=== PATIENT | female | born 1965 | race Caucasian/White ===

== ENCOUNTER 2016-12-07 13:17 | Observation (INO) ==
--- NOTE | 2016-12-07 14:00 | Emergency Department Note ---
Disposition Clinical Impression: Chest pain Disposition: Admitted As Inpatient Condition: Good Time of Disposition: 16:42 Chest Pain HPI - General Chief Complaint: ED Chest Pain Stated Complaint: chest pain, ROLO Time Seen by Provider: 12/07/16 13:55 Source: patient, family Mode of arrival: ambulatory Limitations: no limitations Vital Signs Reviewed: Yes Nursing Notes Reviewed: Yes - History of Present Illness HPI Narrative: 51-year-old female with intermittent left-sided chest pain with associated shortness of breath that is worse with exertion over the last 1-2 days. She comes in today as her symptoms occurred at rest and did not remit until she took a nitroglycerin that was prescribed by her primary care physician yesterday. She states that she had a left heart catheter 10 or 15 years ago and does not have any stents. She has a history of hypertension. She denies history of PE or DVT. She denies recent travel, surgery, or immobilization. She notes that she has worsening peripheral edema over the last few days. Her primary care physician recommended that she follow up with cardiology for her symptoms. She does not have an appointment time. Severity scale (1-10): 6 - Related Data Allergies Allergy/AdvReac Type Severity Reaction Status Date / Time Bee Pollen Allergy Swelling Verified 12/07/16 13:25 of Lip/Tongue/Throat tree nut Allergy Swelling Verified 12/07/16 13:25 of Lip/Tongue/Throat All systems ED: reviewed and negative except as stated. Chest Pain PMH - Past Medical History Medical history: Reports: coronary artery disease, hypertension Psychiatric history: Reports: no psych history - Social History Smoking Status: Former smoker Alcohol use: Reports: none Drug use: Reports: none Physical Exam - Head Head exam: atraumatic, normocephalic, normal inspection - Eye Eye exam: Present: normal appearance, PERRL, EOMI - ENT ENT exam: normal exam, normal oropharynx, mucous membranes moist - Neck Neck exam: Present: normal inspection, full ROM, trachea midline - Chest Chest inspection: Present: normal inspection, symmetric chest wall rise - Respiratory Respiratory exam: Clear to auscultation bilaterally without wheezes rales or rhonchi Cardiovascular Cardiovascular exam: Present: regular rate, normal rhythm, normal heart sounds - Abdominal Exam Abdominal exam: Present: soft, Non-Tender. Absent: tenderness, distention, guarding, rebound, rigidity - Extremities Exam Bilateral pedal edema. No calf tenderness. - Back Exam Back exam: Present: normal inspection, full ROM. Absent: tenderness, CVA tenderness (R), CVA tenderness (L) - Neurological Exam Neurological exam: Present: alert, oriented X3, CN II-XII intact - Psychiatric Psychiatric exam: Present: normal affect, normal mood - Skin Skin exam: Present: warm, dry, intact, normal color - General Limitations: no limitations General appearance: alert, in no apparent distress Course - Reevaluation(s) Reevaluation #1: Trop neg. Pt doesn't feel comfortable going home as she lives 1 hour away and her symptoms have been worsening. Accepted by Dr. Beach for CP obs. Time: 16:42 Vital Signs Temperature 98.5 F 12/07/16 13:25 Pulse Rate 104 12/07/16 13:25 Respiratory Rate 18 12/07/16 13:25 Blood Pressure 123/80 12/07/16 13:25 O2 Sat by Pulse Oximetry 100 12/07/16 13:25 Temperature 97.9 F 12/07/16 18:48 Pulse Rate 96 12/07/16 18:48 Respiratory Rate 16 12/07/16 18:48 Blood Pressure 116/68 12/07/16 18:48 O2 Sat by Pulse Oximetry 96 12/07/16 18:48 Oxygen Delivery Oxygen Delivery Room Air Chest Pain - Lab Data Result diagrams: 12/07/16 15:37 12/07/16 15:37 Lab Results 12/07/16 12/07/16 12/07/16 Range/Units 15:37 15:37 15:37 WBC 6.4 (4.3-11.1) K/mcL RBC 3.70 L (3.82-4.97) M/mcL Hgb 12.3 (11.5-15.4) g/dL Hct 36.4 (35.3-44.9) % MCV 98.4 (83.0-100.0) fL MCH 33.2 (28.0-33.3) pg MCHC 33.8 (31.6-35.5) g/dL RDW 14.2 (11.5-14.5) % Plt Count 471 H (140-400) K/mcL MPV 9.4 (9.4-12.4) fL PT 11.4 (9.4-12.1) Seconds INR 1.1 APTT 35.5 (26.0-36.0) Seconds Sodium 138 (136-145) mEq/L Potassium 4.3 (3.5-4.5) mEq/L Chloride 107 (98-109) mEq/L Carbon Dioxide 22 (19-29) mEq/L BUN 12 (7-20) mg/dL Creatinine 0.72 (0.57-1.11) mg/dL Est GFR ( Amer) > 60 (> 60) Est GFR (Non-Af Amer) > 60 (> 60) BUN/Creatinine Ratio 17 (6-26) Glucose 81 (70-99) mg/dL Calculated Osmolality 285 (280-300) Calcium 8.0 L (8.6-10.8) mg/dL Troponin I (0-0.03) ng/mL 12/07/16 Range/Units 15:37 WBC (4.3-11.1) K/mcL RBC (3.82-4.97) M/mcL Hgb (11.5-15.4) g/dL Hct (35.3-44.9) % MCV (83.0-100.0) fL MCH (28.0-33.3) pg MCHC (31.6-35.5) g/dL RDW (11.5-14.5) % Plt Count (140-400) K/mcL MPV (9.4-12.4) fL PT (9.4-12.1) Seconds INR APTT (26.0-36.0) Seconds Sodium (136-145) mEq/L Potassium (3.5-4.5) mEq/L Chloride (98-109) mEq/L Carbon Dioxide (19-29) mEq/L BUN (7-20) mg/dL Creatinine (0.57-1.11) mg/dL Est GFR ( Amer) (> 60) Est GFR (Non-Af Amer) (> 60) BUN/Creatinine Ratio (6-26) Glucose (70-99) mg/dL Calculated Osmolality (280-300) Calcium (8.6-10.8) mg/dL Troponin I 0.00 (0-0.03) ng/mL - EKG Data EKG attestation: Yes I reviewed and interpreted this EKG. EKG results narrative: Sinus tachycardia at 106 with normal axis and intervals. No ST elevation or depression, but there are anterior Q waves. No old EKG available for comparison. Attestation Statement - Attestation Attestation: I examined this patient and my medical decision-making was reviewed with the REHABILITATION PSYCHOLOGIST/PA/Advanced Practice Nurse/Resident Physician. I agree with the documented findings, disposition and treatment plan as described except to the extent set forth below. 51-year-old female presents he has recurrent chest pain. She has had recurring substernal chest discomfort past 2 weeks. This is provoked by exertion with occasional radiation to her left arm. Occasionally has dyspnea and nausea with these as well. Denies any diaphoresis. He was seen yesterday by her PCP and started on nitroglycerin. She did take a Motrin earlier today with reduction of the pain. However, the pain seems to be more frequent and recurs with minimal degree of exertion. No fevers, chills or rigors. Well-appearing, pleasant female in no apparent distress. Flat affect. Oropharynx clear. Neck supple. Chest clear to auscultation bilateral. Chest wall is nontender. Cardiac exam regular without rubs or gallops. Abdomen soft nontender. Extremities warm and dry with bilateral 1+ pitting edema. No calf tenderness. EKG negative for any acute process. Chest x-ray is negative. Cardiac enzymes normal. He attempted to get her into cardiology follow-up within the next 24-48 hours but this was not an option. Case is discussed with the hospitalist will admit for further evaluation treatment.
[2016-12-07] MEDS ORDERED: Aspirin 81 MG TAB.CHEW PO ONE (14:09)
[2016-12-07 15:44] LABS: Hematocrit 36.4 % (35.3-44.9); Hemoglobin 12.3 g/dL (11.5-15.4); Mean Corpuscular HGB Conc 33.8 g/dL (31.6-35.5); Mean Corpuscular Hemoglobin 33.2 pg (28.0-33.3); Mean Corpuscular Volume 98.4 fL (83.0-100.0); Mean Platelet Volume 9.4 fL (9.4-12.4); Platelet Count 471 K/mcL (140-400); Red Cell Distribution Width 14.2 % (11.5-14.5)
[2016-12-07 15:51] LABS: INR 1.1; Prothrombin Time 11.4 Seconds (9.4-12.1)
[2016-12-07 15:54] LABS: Activated Partial Thrombo Time 35.5 Seconds (26.0-36.0)
[2016-12-07 15:55] LABS: BUN/Creatinine Ratio 17 (6-26); Blood Urea Nitrogen 12 mg/dL (7-20); Carbon Dioxide 22 mEq/L (19-29); Chloride 107 mEq/L (98-109); Glucose 81 mg/dL (70-99); Osmolality,Calculated 285 (280-300); Potassium 4.3 mEq/L (3.5-4.5); Sodium 138 mEq/L (136-145); eGFR For African Americans > 60 (> 60); eGFR For Non-African Americans > 60 (> 60)
--- NOTE | 2016-12-07 19:27 | Electrocardiograph Report ---
[employer] Test Date: 2016-12-07 Pat Name: Julianna Wong Department: 102 Room: 3B48 Gender: F Ash Collector: : 1965 Requested By: Antony Dawson Order Number: [id number] Reading MD: Ann Chen DO Measurements Intervals [place] Rate: 106 P: 41 FL: 155 QRS: 0 QRSD: 81 T: 61 QT: 312 QTc: 374 Interpretive Statements SINUS TACHYCARDIA ANTERIOR MYOCARDIAL INFARCTION [40+ ms Q WAVE AND/OR ST/T ABNORMALITY IN V3/V4], OF INDETERMINATE AGE Electronically Signed On 12-07-2016 19:25:23 EST by Ann Chen DO
[2016-12-07] MEDS ORDERED: Nitroglycerin 0.4 MG TAB.SUBL SL PRN (20:33)
[2016-12-07] MEDS ORDERED: Naloxone 0.4 MG/ML INJ IVP PRN (20:45)
[2016-12-07] MEDS ORDERED: *HR* Morphine 2 MG/ML SYRINGE IVP PRN (20:45)
--- NOTE | 2016-12-07 20:57 | Internal Med History&Physical ---
Date of Encounter: 12/07/16 Time of Encounter: 19:30 Internal Medicine - H&P: HPI Chief complaint: Atypical chest pain, palpitation. Admitted From: Emergency Dept Plans for Post Hospital Care: Home History of present illness: Ms. Wong is a 51 year old female with medical history significant for HTN ( though of late she has had more of hypotension), chronic pedal edema, anxiety, depression presents to the ED on advise of her PCP with intermittent left-sided chest pain of 1 day duration. She had been evaluated yesterday by her PCP when she had complained of palpitation and SOB. At that time, she had no chest pain. He had given her a prescription for SL nITROGLYCERINE AND ADVISED HER TO GO TO THE ed IF she developed chest pain. Chest started thi morning, was dull, like someone sitting on her chest, associated with SOB. nO RADIATION OF PAIN, NO NAUSEA, VOMITING, NO DIAPHORESIS. No abdominal pain. No cfever, chills or rigors , no cough. She was been battling chronic pedal edema for which her PCP had prescribed Lasix intermittent. No PND, no orthopnea. No history of CHF. No history of CAD. She had a normal ECHO in 2007, AND A NORMAL LHC done to evaluate chest pain 12 years ago. At that time she was informed that her chest pain was more consistent with anxiety. She is FULL CODE as per discussion and nominate her daughter, Radha Barrios ([phone]) as her NOK/POA. ROS: A 10-point ROS was performed, positives and relevant negatives are detailed , system-symptom not mentioned is assumed negative unless otherwise stated. Vital Signs Temperature 98.5 F 12/07/16 13:25 Pulse Rate 104 12/07/16 13:25 Respiratory Rate 18 12/07/16 13:25 Blood Pressure 123/80 12/07/16 13:25 O2 Sat by Pulse Oximetry 100 12/07/16 13:25 Temperature 97.9 F 12/07/16 18:48 Pulse Rate 96 12/07/16 18:48 Respiratory Rate 16 12/07/16 18:48 Blood Pressure 116/68 12/07/16 18:48 O2 Sat by Pulse Oximetry 96 12/07/16 18:48 O/E: Not acute ill looking, not in distress, obese HEENT: Moist mucous membrane, trachea is central, not pale, anicteric, afebrile , mild icterus, no JVD. Chest: Clinically clear, chest pain is reproducible, it is anticipatory Heart: RRR, HS1/2, no murmur Abdomen: non-distended, sensitive to palpation without distinct tenderness no masses, Tympanic to percussion, BS+ no masses OUTSIDE SALESMAN: AAO X 3, moves all limbs spontaneous, no gross focal neurological deficit : No flank tenderness, no CVA tenderness, no suprapubic tenderness. Skin: no active skin lesion. Extremities: 1+ pedal edema (pitting), normal pedal pulses, no calf tenderness. Lab Results 12/07/16 12/07/16 12/07/16 Range/Units 15:37 15:37 15:37 WBC 6.4 (4.3-11.1) K/mcL RBC 3.70 L (3.82-4.97) M/mcL Hgb 12.3 (11.5-15.4) g/dL Hct 36.4 (35.3-44.9) % MCV 98.4 (83.0-100.0) fL MCH 33.2 (28.0-33.3) pg MCHC 33.8 (31.6-35.5) g/dL RDW 14.2 (11.5-14.5) % Plt Count 471 H (140-400) K/mcL MPV 9.4 (9.4-12.4) fL PT 11.4 (9.4-12.1) Seconds INR 1.1 APTT 35.5 (26.0-36.0) Seconds Sodium 138 (136-145) mEq/L Potassium 4.3 (3.5-4.5) mEq/L Chloride 107 (98-109) mEq/L Carbon Dioxide 22 (19-29) mEq/L BUN 12 (7-20) mg/dL Creatinine 0.72 (0.57-1.11) mg/dL Est GFR ( Amer) > 60 (> 60) Est GFR (Non-Af Amer) > 60 (> 60) BUN/Creatinine Ratio 17 (6-26) Glucose 81 (70-99) mg/dL Calculated Osmolality 285 (280-300) Calcium 8.0 L (8.6-10.8) mg/dL Troponin I (0-0.03) ng/mL 12/07/16 Range/Units 15:37 WBC (4.3-11.1) K/mcL RBC (3.82-4.97) M/mcL Hgb (11.5-15.4) g/dL Hct (35.3-44.9) % MCV (83.0-100.0) fL MCH (28.0-33.3) pg MCHC (31.6-35.5) g/dL RDW (11.5-14.5) % Plt Count (140-400) K/mcL MPV (9.4-12.4) fL PT (9.4-12.1) Seconds INR APTT (26.0-36.0) Seconds Sodium (136-145) mEq/L Potassium (3.5-4.5) mEq/L Chloride (98-109) mEq/L Carbon Dioxide (19-29) mEq/L BUN (7-20) mg/dL Creatinine (0.57-1.11) mg/dL Est GFR ( Amer) (> 60) Est GFR (Non-Af Amer) (> 60) BUN/Creatinine Ratio (6-26) Glucose (70-99) mg/dL Calculated Osmolality (280-300) Calcium (8.6-10.8) mg/dL Troponin I 0.00 (0-0.03) ng/mL EKG: ST @ 106, Q waves V3/4, unknown significance. CXR: No acute cardiopulmonary disease, right basilar atelectasis. IMP Atypical chest pain, suspect severe anxiety/panic episodes. Gravitational edema vs Diastolic CHF. Chronic morbidities Hypertension Morbid obesity Anxiety neurosis Depression. PLAN Admit Cycle troponins, serial EKG 2D ECHO Stress test in the AM Low risk for DVT Continue only essential medications of chronic morbidities. I discussed my assessment with the patient, she verbalized understanding and is agreeable to admission. She is admitted to observation for evaluation of atypical chest pain. Past Med Surg Social Fam HX - Past Medical History Medical history: hypertension Psychiatric history: no psych history - Past Surgical History Surgical History: cholecystectomy - Social History Smoking Status: Current every day smoker Smokeless Tobacco Status: No Alcohol use: none Drug use: none Occupational status: employed Current living situation: Home - Independent Activity Level: Independent ambulation Recent Out of Country Travel Within the Last 8 Weeks: No Exposure or Possible Exposure to Illness During Travel: No - Family History Father Hx Family Cardiac Disorders: Yes (HYPERTENSION.) Hx Family Neurologic Disorders: Yes (cva) Mother Hx Family Endocrine Disorder: Yes (DM2) Internal Medicine - H&P: Meds Acetaminophen [Tylenol] 500 mg PO Q6HR PRN 12/07/16 [History] Acyclovir [Zovirax] 400 mg PO BID 12/07/16 [History] Amitriptyline [Elavil] 20 mg PO HS 12/07/16 [History] Ascorbate Calcium [Vitamin C] 1,000 mg PO DAILY 12/07/16 [History] Aspirin 81 mg PO DAILY 12/07/16 [History] Bupropion HCl [Wellbutrin Xl] 300 mg PO QAM 12/07/16 [History] Cetirizine HCl [Zyrtec] 10 mg PO DAILY PRN 12/07/16 [History] Cholecalciferol (D-3) [Vitamin D] 1,000 unit PO DAILY 12/07/16 [History] Dicyclomine [Bentyl] 20 mg PO QID PRN 12/07/16 [History] Ferrous Sulfate 325 mg PO DAILY 12/07/16 [History] Fluticasone Propionate Nasal [Flonase] 50 mcg NS DAILY 12/07/16 [History] Furosemide [Lasix] 20 mg PO DAILY PRN 12/07/16 [History] L. Acidophilus/Pectin, Randall [Acidophilus Probiotic Capsule] 1 each PO DAILY [History] Loperamide [Imodium] 2 mg PO 8XD PRN 12/07/16 [History] Meloxicam [Mobic] 7.5 - 15 mg PO DAILY 12/07/16 [History] Multivitamin [Multi-Day Vitamins] 1 each PO DAILY 12/07/16 [History] Mv,Iron,Min/Folic Acid/Biotin [Hair, Skin & Nails Softgel] 66.7 mcg PO DAILY [History] Nitroglycerin [Nitrostat] 0.4 mg SL Q5M PRN 12/07/16 [History] Allergies Bee Pollen Allergy (Verified 12/07/16 13:25) Swelling of Lip/Tongue/Throat tree nut Allergy (Verified 12/07/16 13:25) Swelling of Lip/Tongue/Throat All Systems PM: A 10-system review of systems was performed and is negative for pertinent findings except as documented above in the HPI. - Constitutional Vitals: Temp Pulse Resp BP Pulse Ox 97.9 F 96 16 116/68 96 12/07/16 18:48 12/07/16 18:48 12/07/16 18:48 12/07/16 18:48 12/07/16 18:48 Internal Med - H&P Results - Labs CBC & Chem 7: 12/07/16 15:37 12/07/16 15:37 - VTE Reasons for not Prescribing Prophylaxis: Treatment not Indicated - Low risk for VTE
[2016-12-08 06:22] LABS: Chol/HDL Ratio 2.2 (0-4.9)
[2016-12-08] MEDS ORDERED: Regadenoson 0.4 MG/5 ML SYRINGE IVP ONE (06:38)
[2016-12-08] MEDS: Aspirin 81 MG TAB.CHEW PO SCH (10:26)
[2016-12-08] MEDS: Furosemide 20 MG TABLET PO SCH (10:26)
[2016-12-08] MEDS: BuPROPion XL (24 HR) 150 MG TABLET PO SCH (10:26)
--- NOTE | 2016-12-08 11:49 | ECHO - Doppler Report ---
Echocardiogram Name: Julianna Wong Date of Study: 12/08/2016 Date: 1965 Ht: 60.0 in Medical Record#: [id number] Age: 51 Wt: 188.0 lb Gender: Female BSA: 1.82 Order #: [id number] Location: [facility] Room #: 3B48 Reading Physician: Jass Peters MD, [facility] Skin Grader: Isabel Blum T Ordering Physician: Lauri Durán MD Primary Physician: Jona Barrera MD Indications: Chest pain Impressions: Normal left ventricular size and systolic function, LVEF 65%. Mild left ventricular diastolic dysfunction. Normal right ventricular size and function. Aortic valve not well visualized. Appears trileaflet with mild sclerosis. Aortic regurgitation is present, although the severity was not well assessed on this study. Suspect mild-moderate aortic regurgitation, however, cannot rule out more severe AR on this study. No evidence of pulmonary hypertension. To further assess the aortic regurgitation, consider repeating a limited TTE with attention on the aortic valve, ideally when heart rate is lower (heart rate was in the mid-upper 90's during this study). ERIC could also be considered to evaluate the aortic valve if clinically indicated. Primary hospitalist (Dr. gNuyen) has been paged to further discuss. Left Ventricular Wall Motion: Rest Echo Findings All wall segments showed normal motion. Findings: Study Quality * Suboptimal echo windows. ECG Findings * Normal sinus rhythm. Left Ventricle * Normal left ventricular size and systolic function, LVEF 65%. * Normal LV wall thickness. * Mild left ventricular diastolic dysfunction. Right Ventricle * Normal right ventricular size and function. Left Atrium * Normal left atrial size. Right Atrium * Normal right atrial size. Aorta * Normally sized aortic root. Pericardium * There is no pericardial effusion present. IVC * The IVC is not well evaluated. Aortic Valve * Aortic valve not well visualized. Appears trileaflet with mild sclerosis. * No aortic stenosis. * Aortic regurgitation is present, although the severity was not well assessed on this study. Mitral Valve * Mildly thickened/calcified mitral valve leaflets. * No mitral stenosis. * Trace mitral regurgitation. Tricuspid Valve * Tricuspid valve not well visualized. * No tricuspid stenosis. * Trace tricuspid regurgitation. * No evidence of pulmonary hypertension. Pulmonic Valve * Pulmonic valve not well visualized. * No pulmonic stenosis. * No pulmonic regurgitation. History History of Smoking Years 20 Packs 0.5 Family History of CAD Measurements: BP: 99/ 65 2D Normal Values RVIDd: 2.40 cm IVSd: .90 cm 0.6 - 1.0 cm LVIDd: 4.30 cm 3.7 - 5.6 cm LVPWd: .80 cm 0.6 - 1.1 cm LVIDs: 3.00 cm 1.5 - 3.6 cm AO: 2.70 cm < 4.0 cm %FS: 30.20 cm >25 % LA volume: 44 Mitral Valve Peak E:.73 m/sec Peak A:.88 m/sec E/A Ratio:0.8 Tricuspid Valve TV Regurg Peak Grad: 9.00mmHg TV Regurg Peak Fred: 1.51m/sec Updated by Jass Peters MD, [facility] on 12/08/2016 11:43:28 AM electronically signed on 12/08/2016 11:45:17 AM with status of Final Wall Motion Franco: 1=Normal, 2=Hypokinesis, 3=Akinesis, 4=Dyskinesis, 5=Aneurysmal, 6=Hyperkinetic, X=Not Visualized (Blank)=Missing
--- NOTE | 2016-12-08 12:02 | Nuclear Medicine Stress Report ---
Regadenoson Nuclear Stress Name: Julianna Wong Date of Study: 12/08/2016 Date: 1965 Ht: Medical Record#: [id number] Age: 51 Wt: Gender: Female Order #: [id number] Location: [facility] Room: [facility] Supervising Provider: Lucas Jonas CNP Reading Physician: Jass Peters MD, [facility] Ordering Physician: Manasa Nguyen MD Primary Care Physician: Jona Barrera MD Stress Technologist: Zoë Lou RRT Indications: Chest Pain Impression: Resting ECG demonstrated sinus tachycardia (112 bpm), anteroseptal TN (age indeterminate). No significant ECG changes with regadenoson. Heart rate was in the 110's - 120's throughout stress and recovery. Gated LVEF = 71%. Perfusion imaging was negative for ischemia or infarct. Stress Test Summary: Stress Test Type: Pharmacologic Regadenoson 0.4mg/5ml given IV Baseline Information: Initial Heart Rate: 112 Blood Pressure: 128/86 Stress Information: Test Terminated Due to (primary): As per protocol Maximum Blood Pressure: 120/78 Maximum Heart Rate: 128 Percent Maximum Heart Rate Achieved: 77 Double Product: [id number] Symptoms: No chest symptoms Nuclear Summary: SPECT myocardial perfusion imaging using [id number] Sestamibi given intravenously was performed at rest and following cardiac stress testing. The resting images were obtained following initial dose of 11.0 mCi. Following stress an additional dose of 32.6 mCi was given at peak exercise or 30 seconds post regadenoson infusion. Findings: Stress Note * Resting ECG demonstrated sinus tachycardia (112 bpm), anteroseptal TN (age indeterminate). * No baseline arrhythmias were noted. * Patient had no chest pain during stress. * No arrhythmias were noted during stress. * No significant ECG changes with regadenoson. Heart rate was in the 110's - 120's throughout stress and recovery. Hemodynamic responses * Normal hemodynamic responses to pharmacologic stress. Study Quality * Study quality is good. Gated EF % * Gated LVEF = 71%. Left Ventricle * The left ventricle is not dilated. * Normal Segmental Perfusion in rest. * Normal segmental perfusion in stress. TID * No evidence of transient ischemic dilatation. Updated by Jass Peters MD, [facility] on 12/08/2016 11:56:25 AM electronically signed on 12/08/2016 11:57:08 AM with status of Final
--- NOTE | 2016-12-08 13:50 | Cardiology Consult Note ---
<Johana Segundo - Last Filed: 12/08/16 15:32> Date of Encounter: 12/08/16 Time of Encounter: 13:40 Assessment and Plan (1) Aortic regurgitation Current Visit: Yes Status: Acute Mild-moderate AR with preserved LV function noted per on echocardiogram. Severity of valve difficult to assess due to tachycardia, recommend starting on betablocker and repeating limited echocardiogram to assess AR when HR are controlled; can be completed as outpatient. Qualifiers: Cardiac valve disease etiology: etiology unspecified Qualified Code(s): I35.1 - Nonrheumatic aortic (valve) insufficiency (2) Sinus tachycardia Current Visit: Yes Status: Acute Reports 2 week history of tachycardia, reported HR in the 140's at home. Associated symptoms including worsening shortness of breath, weakness, palpitations, and pedal edema. Nuclear stress test negative for ishemia. No electrolyte imbalance noted. TSH normal. Reports 50+ weight loss since February 2016 due to nausea, vomiting, and diarrhea of unclear etiology. Of note, also reports chronic yeast infections Suspect malnutrition may be contributing to symptoms. Check CMP in AM. Recommend GI consultation. Recommend proceeding with CTA to r/o PE if D-dimer elevated. (3) Shortness of breath Current Visit: Yes Status: Acute Plan as above. (4) Tobacco use Current Visit: Yes Status: Chronic Reports quit smoking on Monday, 10/26-10/24 ppd x10+ years. Encouraged continued cessation, discussed for 5 minutes. Discussion w patient/family: The assessment and plan as outlined above was discussed with the patient and/or family members who expressed understanding and agreement. All questions were answered. Thank you for involving us in the care of your patient. Please call with any questions. The patient will be discussed and reviewed with Dr. Correa; changes to be made accordingly. History of Present Illness Consult date: 12/08/16 Requesting physician: Manasa Nguyen Consult reason: Tachycardia, AR Chief complaint: palpitations, weakness, swelling History of present illness: Ms. Wong is a 51 year old female with past medical history significant for HTN , herpes virus, chronic n/v/d who presented to the ED with 2 week history of worsening weakness, BLE edema, and palpitations. She reports she is unable to do anything due to overwhelming fatigue. Reports worsening palpations over the past 2 weeks, reportedly HR high as 145 at home the past few days. She also reported an episode of left-sided chest pain described as heaviness and was non- radiating. She reports 50+ pound weight loss since February 2016, attributes to chronic vomiting, nausea & diarrhea. She has been told she has IBS. She also reports chronic yeast infections to face, oral cavity, feet, legs, skin folds, & vagina. Cardiology consulted today for tachycardia and also possible AR as described on TTE. Past Med Surg Social Fam HX - Past Medical History Attestation: Yes The following information was validated with the patient. Medical history: hypertension, other (chronic yeast infection, IBS, herpes simplex virus) Psychiatric history: no psych history - Past Surgical History Surgical History: cholecystectomy - Social History Smoking Status: Current every day smoker Smokeless Tobacco Status: No Alcohol use: none Drug use: none - Family History Father Hx Family Cardiac Disorders: Yes (HYPERTENSION.) Hx Family Neurologic Disorders: Yes (cva) Mother Hx Family Endocrine Disorder: Yes (DM2) Medications and Allergies Acetaminophen [Tylenol] 500 mg PO Q6HR PRN 12/07/16 [History] Acyclovir [Zovirax] 400 mg PO BID 12/07/16 [History] Amitriptyline [Elavil] 20 mg PO HS 12/07/16 [History] Ascorbate Calcium [Vitamin C] 1,000 mg PO DAILY 12/07/16 [History] Aspirin 81 mg PO DAILY 12/07/16 [History] Bupropion HCl [Wellbutrin Xl] 300 mg PO QAM 12/07/16 [History] Cetirizine HCl [Zyrtec] 10 mg PO DAILY PRN 12/07/16 [History] Cholecalciferol (D-3) [Vitamin D] 1,000 unit PO DAILY 12/07/16 [History] Dicyclomine [Bentyl] 20 mg PO QID PRN 12/07/16 [History] Ferrous Sulfate 325 mg PO DAILY 12/07/16 [History] Fluticasone Propionate Nasal [Flonase] 50 mcg NS DAILY 12/07/16 [History] Furosemide [Lasix] 20 mg PO DAILY PRN 12/07/16 [History] L. Acidophilus/Pectin, [place] [Acidophilus Probiotic Capsule] 1 each PO DAILY [History] Loperamide [Imodium] 2 mg PO 8XD PRN 12/07/16 [History] Meloxicam [Mobic] 7.5 - 15 mg PO DAILY 12/07/16 [History] Multivitamin [Multi-Day Vitamins] 1 each PO DAILY 12/07/16 [History] Mv,Iron,Min/Folic Acid/Biotin [Hair, Skin & Nails Softgel] 66.7 mcg PO DAILY [History] Nitroglycerin [Nitrostat] 0.4 mg SL Q5M PRN 12/07/16 [History] Allergies Bee Pollen Allergy (Verified 12/07/16 13:25) Swelling of Lip/Tongue/Throat tree nut Allergy (Verified 12/07/16 13:25) Swelling of Lip/Tongue/Throat All Systems Review: A 10-system review of systems was performed and is negative for pertinent findings except as documented above in the HPI. - Cardiovascular Cardiovascular: as per HPI Physical Examination Vital Signs, Last 4 Hours Temp Pulse Resp BP Pulse Ox 12/08/16 10:19 98.0 F 108 16 132/88 98 General: Conversant HEENT: Atraumatic, Normocephaly Cardiac: Reg Rate and Rhythm (tachycardiac), Other (2/6 mumur present) Lungs: Normal Breath Sounds Neuro: Alert and responsive Abdomen: Soft Skin: Other (several scabs on BLE) Extremities: Normal Pulses, Other (+1-2 pitting pedal edema BLE) Results 12/07/16 15:37 12/07/16 15:37 Lab Results 12/07/16 12/07/16 12/08/16 22:06 22:06 05:32 Troponin I 0.00 0.00 TSH 2.469 Active Medications Acetaminophen (Tylenol) 500 mg PO Q6HR PRN PRN Reason: Pain Stop: 06/08/17 20:34 Last Admin: 12/07/16 22:27 Dose: 500 mg Acyclovir (Zovirax) 400 mg PO BID TIFF Stop: 06/08/17 21:01 Last Admin: 12/08/16 10:26 Dose: 400 mg Amitriptyline HCl (Elavil) 20 mg PO HS TIFF Stop: 06/08/17 21:01 Last Admin: 12/07/16 22:27 Dose: 20 mg Aspirin (Aspirin) 81 mg PO DAILY TIFF Stop: 06/09/17 09:01 Last Admin: 12/08/16 10:26 Dose: 81 mg Bupropion HCl (Wellbutrin Xl) 300 mg PO QAM TIFF Stop: 06/09/17 09:01 Last Admin: 12/08/16 10:26 Dose: 300 mg Furosemide (Lasix) 20 mg PO DAILY TIFF Stop: 06/09/17 09:01 Last Admin: 12/08/16 10:26 Dose: 20 mg Morphine Sulfate (Morphine Sulfate) 2 mg IVP Q4HR PRN PRN Reason: Chest Pain Stop: 06/08/17 20:46 Naloxone HCl (Narcan) 0.4 mg IVP Q2MIN PRN PRN Reason: Opioid Reversal Stop: 06/08/17 20:46 Nitroglycerin (Nitroglycerin) 0.4 mg SL Q5M PRN PRN Reason: Chest Pain Stop: 06/08/17 20:34 Ondansetron HCl (Zofran) 4 mg IVP Q8HR PRN PRN Reason: Nausea And Vomiting Stop: 06/08/17 20:46 - Imaging and Cardiology Echo: report reviewed Cardiac cath: report reviewed Other Results: 12 hour tele: avg [id number] ST. No significant event noted. - EKG Interpretation EKG results cardiology: personally reviewed Consult Discharge Plan - Plan Referrals: Jona Barrera MD [Primary Care Provider] - <SunnyCindy - Last Filed: 12/08/16 16:12> Date of Encounter: 12/08/16 Assessment and Plan Discussion w patient/family: The assessment and plan as outlined above was discussed with the patient and/or family members who expressed understanding and agreement. All questions were answered. Thank you for involving us in the care of your patient. Please call with any questions. History of Present Illness History of present illness: Ms. Wong is a 51 year old female All Systems Review: A 10-system review of systems was performed and is negative for pertinent findings except as documented above in the HPI. Results 12/07/16 15:37 12/07/16 15:37 Lab Results 12/07/16 12/07/16 12/08/16 22:06 22:06 05:32 Troponin I 0.00 0.00 TSH 2.469 - Attending Attestation I examined this patient and my medical decision-making was reviewed with the LICENSED OPTICAL DISPENSER/PA/Advanced Practice Nurse/Resident Physician. I agree with the documented findings, disposition and treatment plan. Ms. Wong has tachycardia which may be due to volume depletion and a poorly nourished state. She has lost a considerable amount of weight in the last 6 months secondary to diarrhea, nausea and vomiting. Patient states that she has been vomiting several times a week over the course of the 6 months. Her echo demonstrates normal LV function, troponin negative, no concerning ECG findings and d-dimer is also negative. Can consider repeat evaluation of aortic regurgitation when heart rates slow. Aortic root is visually normal in size. Recommend hydration and GI evaluation.
[2016-12-08] MEDS ORDERED: 0.9 % Sodium Chloride 1,000 ML IVC SCH (16:00)
[2016-12-08] MEDS: Ondansetron 4 MG/2 ML VIAL IVP PRN (16:32)
--- NOTE | 2016-12-08 17:56 | Internal Med Progress Note ---
Date of Encounter: 12/08/16 Time of Encounter: 10:00 - Assessment and plan (1) Aortic regurgitation Current Visit: Yes Status: Acute Assessment and plan: Cardiology consult on case, may repeat echo when HR get down. Will follow Cardio further recommendation. Qualifiers: Cardiac valve disease etiology: etiology unspecified Qualified Code(s): I35.1 - Nonrheumatic aortic (valve) insufficiency (2) Chest pain Current Visit: Yes Status: Acute Assessment and plan: Possibly due to AR. Repeat Echo. Qualifiers: Chest pain type: other chest pain Qualified Code(s): R07.89 - Other chest pain; R07.8 - Other chest pain (3) Shortness of breath Current Visit: Yes Status: Acute Assessment and plan: Possibly due to AR. (4) Sinus tachycardia Current Visit: Yes Status: Acute Assessment and plan: Possibly due to AR (5) Tobacco use Current Visit: Yes Status: Chronic Assessment and plan: Smoking cessation education. (6) DVT prophylaxis Current Visit: Yes Status: Acute Assessment and plan: Heparin sc. - Time Spent With Patient 25 - 35 minutes - Subjective Interval history: Pt is a 51 yoF admitted for palpitation and chest pain. PMH is significant for HTN, chronic pedal edema, anxiety, and depression. Pt was seen and examined. She is chest pain free when I see her. No SOB. Still palpitation. Three sets of troponin negative. Stress test negative. However, echo suspects Aortic regurgitation. Cardiology consult called and appreciated. Pt has no desaturation, no calf pain, no recent immobilization, D-Dimer negative. Her TSH is WNL. Will place pt on betablocker and may repeat echo in AM. - Constitutional Vitals: Temp Pulse Resp BP Pulse Ox 98.0 F 108 16 132/88 98 12/08/16 10:19 12/08/16 10:19 12/08/16 10:19 12/08/16 10:19 12/08/16 10:19 General appearance: Present: A&O X 3, no acute distress, answers questions appropriately - Head Head exam: Present: atraumatic, normocephalic - Eye Eye exam: Present: PERRL, conjuntiva pink, sclera anicteric Pupils: Present: PERRL - Neck Neck exam general surgery: Present: supple, trachea midline. Absent: lymphadenopathy - Respiratory Respiratory exam: Present: CTAB. Absent: accessory muscle use, rales, rhonchi, wheezes - Cardiovascular Cardiovascular exam: Present: RRR, +S1, +S2, tachycardia. Absent: diastolic murmur, gallop, rubs, systolic murmur - GI/Abdominal GI/Abdominal exam: Present: normal bowel sounds, soft, no peritoneal signs. Absent: distended, tenderness - Extremities Exam Extremities exam: Present: warm, radial pulses palpable and symetrical. Absent : calf tenderness, cyanotic, pedal edema - Neurological Exam Neurological exam: Present: CN II-XII intact, oriented X3, no focal deficits. Absent: pronater drift, facial droop, speech deficit - Skin Skin exam: Present: dry, intact Internal Medicine: Result - Labs CBC & Chem 7: 12/07/16 15:37 12/07/16 15:37 Labs: Cardiac Enzymes 12/07/16 12/08/16 Range/Units 22:06 05:32 Troponin I 0.00 0.00 (0-0.03) ng/mL - ABG Interpretation ABG results: PT/INR, D-dimer PT 11.4 Seconds (9.4-12.1) 12/07/16 15:37 D-Dimer 337 ng/mLFEU (0-500) 12/08/16 15:30 - VTE Reasons for not Prescribing Prophylaxis: Treatment not Indicated - Low risk for VTE Consult Discharge Plan - Plan Referrals: Jona Barrera MD [Primary Care Provider] -
[2016-12-08] MEDS: *HR* Heparin 5,000 UNIT/ML VIAL SQ SCH (18:27)
[2016-12-08] MEDS: Nystatin POWDER 30 GM BOTTLE TP SCH (22:27)
[2016-12-08] MEDS: Loperamide 1 MG/5 ML UDC PO PRN (22:55)
[2016-12-09 05:50] LABS: Alanine Aminotransferase 29 Units/L (0-55); Albumin/Globulin Ratio 0.7 (1.1-2.2); Alkaline Phosphatase 147 Units/L (38-126); BUN/Creatinine Ratio 22 (6-26); Bilirubin,Total 1.1 mg/dL (0.2-1.2); Blood Urea Nitrogen 19 mg/dL (7-20); Calcium 7.7 mg/dL (8.6-10.8); Carbon Dioxide 14 mEq/L (19-29); Chloride 116 mEq/L (98-109); Globulin 2.3 g/dL (2.4-3.5); Glucose 89 mg/dL (70-99); Osmolality,Calculated 292 (280-300); Sodium 140 mEq/L (136-145); Total Protein 3.9 g/dL (6.0-8.3); eGFR For African Americans > 60 (> 60); eGFR For Non-African Americans > 60 (> 60)
[2016-12-09 05:54] LABS: Albumin 1.6 g/dL (3.5-5.0); Aspartate Amino Transferase 36 Units/L (5-34)
[2016-12-09 05:55] LABS: Potassium 5.4 mEq/L (3.5-4.5)
[2016-12-09] MEDS: *HR* Heparin 5,000 UNIT/ML VIAL SQ SCH ×2 (06:24→18:40)
[2016-12-09 07:52] LABS: Basophils % 0.5 %; Eosinophils # 0.1 K/mcL (0.0-0.6); Hematocrit 33.4 % (35.3-44.9); Hemoglobin 11.4 g/dL (11.5-15.4); Immature Granulocytes % 0.3 % (0-4); Lymphocytes # 1.7 K/mcL (0.6-4.6); Lymphocytes % 22.3 %; Mean Corpuscular HGB Conc 34.1 g/dL (31.6-35.5); Mean Corpuscular Hemoglobin 32.9 pg (28.0-33.3); Mean Corpuscular Volume 96.5 fL (83.0-100.0); Mean Platelet Volume 10.9 fL (9.4-12.4); Monocytes # 0.6 K/mcL (0.0-1.3); Monocytes % 7.8 %; Neutrophils # 5.3 K/mcL (1.6-8.9); Platelet Count 375 K/mcL (140-400); Red Blood Count 3.46 M/mcL (3.82-4.97); Red Cell Distribution Width 13.9 % (11.5-14.5); Segmented Neutrophils % 68.1 %
[2016-12-09] MEDS: Aspirin 81 MG TAB.CHEW PO SCH (07:54)
[2016-12-09] MEDS: Loperamide 1 MG/5 ML UDC PO PRN (07:54)
[2016-12-09] MEDS: Furosemide 20 MG TABLET PO SCH (07:54)
[2016-12-09] MEDS: Nystatin POWDER 30 GM BOTTLE TP SCH ×3 (08:10→20:25)
[2016-12-09] MEDS: BuPROPion XL (24 HR) 150 MG TABLET PO SCH (08:10)
[2016-12-09] MEDS: Ondansetron 4 MG/2 ML VIAL IVP PRN (09:26)
--- NOTE | 2016-12-09 11:00 | Cardiology Progress Note ---
Date of Encounter: 12/09/16 Time of Encounter: 10:30 Assessment and Plan (1) Aortic regurgitation Current Visit: Yes Status: Acute Mild-moderate AR with preserved LV function noted per on echocardiogram. Severity of valve difficult to assess due to tachycardia, repeat limited echocardiogram to assess AR when HR are controlled; can be completed as outpatient. Follow-up in the outpatient setting in 1-2 months, message sent for appt. request via eCW. Qualifiers: Cardiac valve disease etiology: etiology unspecified Qualified Code(s): I35.1 - Nonrheumatic aortic (valve) insufficiency (2) Sinus tachycardia Current Visit: Yes Status: Acute Reports 2 week history of tachycardia, reported HR in the 140's at home. Associated symptoms including worsening shortness of breath, weakness, palpitations, and pedal edema. Nuclear stress test negative for ishemia. No electrolyte imbalance noted. TSH normal. Reports 50+ weight loss since February 2016 due to nausea, vomiting, and diarrhea of unclear etiology. Of note, also reports chronic yeast infections Suspect malnutrition may be contributing to symptoms. Albumin, protein severely low--suspect tachycardia and edema likely contributing. Do not feel that tachycardia is secondary to mild-moderate AR. Recommend GI consultation. (3) Shortness of breath Current Visit: Yes Status: Acute Plan as above. (4) Tobacco use Current Visit: Yes Status: Chronic Reports quit smoking on Monday, 10/26-10/24 ppd x10+ years. Encouraged continued cessation, discussed for 5 minutes. Discussion w patient/family: The assessment and plan as outlined above was discussed with the patient and/or family members who expressed understanding and agreement. All questions were answered. Thank you for involving us in the care of your patient. Please call with any questions. The patient was discussed and reviewed with Dr. Correa; Cardiology will sign-off , please call with questions. Plan communicated with Dr. Nguyen. Subjective Principal diagnosis: Tachycardia, mild AR Interval history: Seen and examined. Feels better today--HR 70's at bedside. No new complaints overnight, reviewed labs/testing/plan with patient. Objective Vital Signs, Last 4 Hours Pulse Ox 12/09/16 07:57 99 General: Conversant, No Apparent Distress HEENT: Atraumatic, Normocephaly Cardiac: Reg Rate and Rhythm, Normal S1 and S2 Lungs: Normal Breath Sounds Neuro: Alert and responsive Abdomen: Soft Skin: No rashes noted on visualized skin Musculoskeletal: No Chest Wall Tenderness Extremities: Other (BLE pedal edema +1-2) Results 12/09/16 06:43 12/09/16 05:15 Lab Results 12/08/16 12/09/16 12/09/16 15:30 05:15 06:43 WBC 7.8 Hgb 11.4 L Hct 33.4 L Plt Count 375 D-Dimer 337 Sodium 140 Potassium 5.4 H D Chloride 116 H Carbon Dioxide 14 L BUN 19 Creatinine 0.86 Glucose 89 Calcium 7.7 L Total Bilirubin 1.1 AST 36 H ALT 29 Alkaline Phosphatase 147 H - Imaging and Cardiology Echo: report reviewed Other Results: 12 hour tele: avg HR=75 SR - EKG Interpretation EKG results cardiology: personally reviewed - VTE Reasons for not Prescribing Prophylaxis: Treatment not Indicated - Low risk for VTE Documentation of Mechanical Device: Graduated compression elastic hosiery Consult Discharge Plan - Plan Referrals: Jona Barrera MD [Primary Care Provider] -
--- NOTE | 2016-12-09 11:20 | Gastroenterology Consult Note ---
<Isabel Morrow - Last Filed: 12/09/16 11:28> Date of Encounter: 12/09/16 Time of Encounter: 11:00 - Assessment and plan (1) Unintentional weight loss Current Visit: Yes Status: Acute Assessment and plan: CT abd pelvis with IV and oral. OTPT EGD/Cscope (2) Nausea & vomiting Current Visit: Yes Status: Chronic Assessment and plan: symptomatic care, anti-emetics. Qualifiers: Vomiting type: unspecified Vomiting Intractability: unspecified Qualified Code(s): R11.2 - Nausea with vomiting, unspecified (3) Diarrhea Current Visit: Yes Status: Chronic Assessment and plan: stool w/u, calpro, panc elastase followed by OTPT Cscope in next week or so. Symptomatic care. Qualifiers: Diarrhea type: unspecified type Qualified Code(s): R19.7 - Diarrhea, unspecified - Time Spent With Patient Total time spent is greater than 50% in coordination of care (as documented) at patient's floor/unit and/or counseling patient: less than 15 minutes GI History of Present Illness - Data of Consult Patient: new to practice Consult date: 12/09/16 Requesting Physician: Manasa Nguyen MD - Consult Narrative Reason for consult: N/V/D, unintentional weight loss History of present illness: Ms. Wong is a 51 year old female with a PMH significant for HTN, herpes virus , chronic N/V/D, obesity s/p [place]-En-Y gastric bypass in 2003. She presented to ER with pitting BLE edema and tachycardia, chest pain and weakness. Cardiology is evaluating during her INPT stay. GI asked to consult for chronic N/V/D symptoms and weight loss. She reports 50+ pound weight loss since February 2016, attributes to chronic vomiting, nausea & diarrhea. She has been told she has IBS. She has never had EGD/Colon to evaluate her complaints. N/V/D symptoms started 04/2016. She has had some stool w/u, all negative to date. She was working on scheduling OTPT scopes, but not completed. She states she had cholecystectomy 06/2016 for these symptoms, but they failed to resolve post surgery. She states the symptoms are intermittent, occuring 2-3 x weekly. She experiences occasional fecal incontinence, denies black stools or blood in stools. Admits abdominal cramping. Uses Imodium, Phenergan and Bentyl with good results at home. Hgb stable at 11.4, myperkalemia, mildly elev AST and alk phos , severe hypoalbuminemia, hypocalcemia. She also reports chronic yeast infections to face, oral cavity, feet, legs, skin folds, & vagina. Colonoscopy: None EGD: None Past Med Surg Social Fam HX - Past Medical History Medical history: hypertension, other (chronic yeast infection, IBS, herpes simplex virus) Psychiatric history: no psych history - Past Surgical History Surgical History: cholecystectomy - Social History Smoking Status: Current every day smoker Smokeless Tobacco Status: No Alcohol use: none Drug use: none - Family History Father Hx Family Cardiac Disorders: Yes (HYPERTENSION.) Hx Family Neurologic Disorders: Yes (cva) Mother Hx Family Endocrine Disorder: Yes (DM2) - Gastrointestinal NSAID use: None noted Anticoagulation Use: Heparin INPT Number of BM Per Day: 1-multiple with some fecal incontinence Gastrointestinal: Present: abdominal pain, bloating, diarrhea, nausea, vomiting - Constitutional Constitutional: anorexia, weight loss - EENT Eyes: as per HPI Ears: Present: as per HPI Nose, mouth and throat: Present: dysphagia - Cardiovascular Cardiovascular ROS: Present: chest pain, palpitations - Respiratory Respiratory IM: Present: as per HPI - Neurological ROS Neurological GI: Present: weakness - Hematologic/Lymphatic Hematologic/Lymphatic pediatric: Present: as per HPI - Musculoskeletal Musculoskeletal ROS GI: Present: as per HPI - Integumentary Integumentary GI: Present: as per HPI - Psychiatric ROS Psychiatric GI: Present: as per HPI - Endocrine Endocrine IM: Present: as per HPI - Constitutional Vitals: Temp Pulse Resp BP Pulse Ox 97.8 F 74 16 114/76 99 12/09/16 06:55 12/09/16 06:55 12/09/16 06:55 12/09/16 06:55 12/09/16 07:57 General appearance: Present: cooperative, A&O X 3, no acute distress, answers questions appropriately - Head Head exam: Present: atraumatic, normocephalic - Eye Eye exam: Present: normal appearance, sclera anicteric - ENT ENT exam: Present: mucous membranes moist Additional comments: chelitis - Neck Neck exam general surgery: Present: normal inspection, trachea midline - Respiratory Respiratory exam: Present: CTAB - Cardiovascular Cardiovascular exam: Present: RRR, +S1, +S2 - GI/Abdominal GI/Abdominal exam: Present: normal bowel sounds, soft, tenderness, no peritoneal signs - Rectal Rectal exam: Present: deferred - Extremities Exam Extremities exam: Present: pedal edema, warm - Neurological Exam Neurological exam: Present: no focal deficits - Psychiatric Psychiatric exam: Present: normal affect, normal mood - Skin Skin exam: Present: dry, intact, normal color, warm Results - Labs CBC & Chem 7: 12/09/16 06:43 12/09/16 05:15 Labs: Last Result Calcium 7.7 mg/dL (8.6-10.8) L 12/09/16 05:15 Troponin I 0.00 ng/mL (0-0.03) 12/08/16 05:32 Triglycerides 68 mg/dL (< 150) 12/08/16 05:32 Entire Visit Hgb 11.4 g/dL (11.5-15.4) L 12/09/16 06:43 Hct 33.4 % (35.3-44.9) L 12/09/16 06:43 PT 11.4 Seconds (9.4-12.1) 12/07/16 15:37 Total Bilirubin 1.1 mg/dL (0.2-1.2) 12/09/16 05:15 AST 36 Units/L (5-34) H 12/09/16 05:15 ALT 29 Units/L (0-55) 12/09/16 05:15 - ABG ABG results: PT/INR, D-dimer PT 11.4 Seconds (9.4-12.1) 12/07/16 15:37 D-Dimer 337 ng/mLFEU (0-500) 12/08/16 15:30 Consult Discharge Plan - Plan Referrals: Jona Barrera MD [Primary Care Provider] - <Darrel Cardozo - Last Filed: 12/09/16 21:45> Date of Encounter: 12/09/16 Time of Encounter: 15:00 - Time Spent With Patient Total time spent is greater than 50% in coordination of care (as documented) at patient's floor/unit and/or counseling patient: GI History of Present Illness - Data of Consult Requesting Physician: Manasa Nguyen MD - Consult Narrative History of present illness: Ms. Wong is a 51 year old female - Constitutional Vitals: Temp Pulse Resp BP Pulse Ox 98.0 F 70 14 87/60 95 12/09/16 20:06 12/09/16 20:06 12/09/16 20:06 12/09/16 20:06 12/09/16 20:06 Results - Labs CBC & Chem 7: 12/09/16 06:43 12/09/16 05:15 Labs: Last Result Calcium 7.7 mg/dL (8.6-10.8) L 12/09/16 05:15 Troponin I 0.00 ng/mL (0-0.03) 12/08/16 05:32 Triglycerides 68 mg/dL (< 150) 12/08/16 05:32 Entire Visit Hgb 11.4 g/dL (11.5-15.4) L 12/09/16 06:43 Hct 33.4 % (35.3-44.9) L 12/09/16 06:43 PT 11.4 Seconds (9.4-12.1) 12/07/16 15:37 Total Bilirubin 1.1 mg/dL (0.2-1.2) 12/09/16 05:15 AST 36 Units/L (5-34) H 12/09/16 05:15 ALT 29 Units/L (0-55) 12/09/16 05:15 - ABG ABG results: PT/INR, D-dimer PT 11.4 Seconds (9.4-12.1) 12/07/16 15:37 D-Dimer 337 ng/mLFEU (0-500) 12/08/16 15:30 - Impressions Impressions Abdomen/Pelvis CT 12/09/16 14:00 IMPRESSION: Mild wall thickening of the sigmoid colon, either due to incomplete distention or wall thickening from underlying inflammatory change. Consider colitis in the appropriate clinical scenario. Postoperative change from gastric bypass. Oral contrast is seen in the distal esophagus. This could indicate reflux. Fatty liver D/ / Robert Caballero MD / Robert Caballero MD Interpreting Provider: Robert Caballero MD - Attending Attestation I examined this patient and my medical decision-making was reviewed with the SUPERVISOR WRAPPING ROOM/PA/Advanced Practice Nurse/Resident Physician. I agree with the documented findings, disposition and treatment plan as described except to the extent set forth below.
[2016-12-09] MEDS ORDERED: Ondansetron 4 MG/2 ML VIAL IVP PRN (14:18)
[2016-12-09] MEDS: Ondansetron ODT 4 MG TAB.RAPDIS SL PRN (16:58)
--- NOTE | 2016-12-09 18:09 | Internal Med Progress Note ---
Date of Encounter: 12/09/16 Time of Encounter: 10:00 - Assessment and plan (1) Aortic regurgitation Current Visit: Yes Status: Acute Assessment and plan: Mild-moderate AR with preserved LV function noted per on echocardiogram. Cardiology consult on case, may repeat echo when HR get down as outpatient. Qualifiers: Cardiac valve disease etiology: etiology unspecified Qualified Code(s): I35.1 - Nonrheumatic aortic (valve) insufficiency (2) Chest pain Current Visit: Yes Status: Acute Assessment and plan: Patient is pain-free now. D-dimer negative. Stress test are negative. Qualifiers: Chest pain type: other chest pain Qualified Code(s): R07.89 - Other chest pain; R07.8 - Other chest pain (3) Shortness of breath Current Visit: Yes Status: Acute Assessment and plan: Possibly due to malnutrition. GI and nutrition counsult on case (4) Sinus tachycardia Current Visit: Yes Status: Acute Assessment and plan: Possibly due to malnutrition. Improved on beta yissel. (5) Tobacco use Current Visit: Yes Status: Chronic Assessment and plan: Smoking cessation education. (6) DVT prophylaxis Current Visit: Yes Status: Acute Assessment and plan: Heparin sc. - Subjective Interval history: Pt is a 51 yoF admitted for palpitation and chest pain. PMH is significant for HTN, chronic pedal edema, anxiety, and depression. Pt was seen and examined. She is chest pain free when I see her. No SOB. Palpitation improved under beta yissel. Three sets of troponin negative. Stress test negative. Cardiology suggested follow-up echo as outpatient. GI consult was called for patient's diarrhea and nausea vomiting. Stool test that was placed by GI and recommended follow-up as an outpatient. Patient had hyperkalemia and low bicarbonate level. Will continue hydrate patient and follow-up BMP. Patient has a very low albumin level, nutrition consult called and appreciated - Constitutional Vitals: Temp Pulse Resp BP Pulse Ox 97.5 F L 82 16 94/66 97 12/09/16 16:30 12/09/16 16:30 12/09/16 16:30 12/09/16 16:30 12/09/16 16:30 General appearance: Present: A&O X 3, no acute distress, answers questions appropriately - Head Head exam: Present: atraumatic, normocephalic - Eye Eye exam: Present: PERRL, conjuntiva pink, sclera anicteric Pupils: Present: PERRL - Neck Neck exam general surgery: Present: supple, trachea midline. Absent: lymphadenopathy - Respiratory Respiratory exam: Present: CTAB. Absent: accessory muscle use, rales, rhonchi, wheezes - Cardiovascular Cardiovascular exam: Present: RRR, +S1, +S2. Absent: diastolic murmur, gallop, rubs, systolic murmur - GI/Abdominal GI/Abdominal exam: Present: normal bowel sounds, soft, no peritoneal signs. Absent: distended, tenderness - Extremities Exam Extremities exam: Present: pedal edema, warm, radial pulses palpable and symetrical. Absent: calf tenderness, cyanotic - Neurological Exam Neurological exam: Present: CN II-XII intact, oriented X3, no focal deficits. Absent: pronater drift, facial droop, speech deficit - Skin Skin exam: Present: dry, intact Internal Medicine: Result - Labs CBC & Chem 7: 12/09/16 06:43 12/09/16 05:15 Labs: Short CBC 12/09/16 Range/Units 06:43 WBC 7.8 (4.3-11.1) K/mcL Hgb 11.4 L (11.5-15.4) g/dL Hct 33.4 L (35.3-44.9) % Plt Count 375 (140-400) K/mcL Neutrophils # 5.3 (1.6-8.9) K/mcL BMP 12/09/16 05:15 Sodium 140 Potassium 5.4 H D Chloride 116 H Carbon Dioxide 14 L BUN 19 Creatinine 0.86 Glucose 89 Calcium 7.7 L Liver Function 12/09/16 Range/Units 05:15 Total Bilirubin 1.1 (0.2-1.2) mg/dL AST 36 H (5-34) Units/L ALT 29 (0-55) Units/L Alkaline Phosphatase 147 H (38-126) Units/L Albumin 1.6 L (3.5-5.0) g/dL - ABG Interpretation ABG results: PT/INR, D-dimer PT 11.4 Seconds (9.4-12.1) 12/07/16 15:37 D-Dimer 337 ng/mLFEU (0-500) 12/08/16 15:30 - Impressions Impressions Abdomen/Pelvis CT 12/09/16 14:00 IMPRESSION: Mild wall thickening of the sigmoid colon, either due to incomplete distention or wall thickening from underlying inflammatory change. Consider colitis in the appropriate clinical scenario. Postoperative change from gastric bypass. Oral contrast is seen in the distal esophagus. This could indicate reflux. Fatty liver D/ / Robert Caballero MD / Robert Caballero MD Interpreting Provider: Robert Caballero MD - VTE Reasons for not Prescribing Prophylaxis: Treatment not Indicated - Low risk for VTE Documentation of Mechanical Device: Graduated compression elastic hosiery Consult Discharge Plan - Plan Referrals: Jona Barrera MD [Primary Care Provider] -
[2016-12-09] MEDS: Ringers Solution, Lactated 1,000 ML IVC SCH (18:39)
[2016-12-10 04:13] LABS: BUN/Creatinine Ratio 19 (6-26); Blood Urea Nitrogen 15 mg/dL (7-20); Calcium 7.3 mg/dL (8.6-10.8); Carbon Dioxide 17 mEq/L (19-29); Chloride 113 mEq/L (98-109); Glucose 79 mg/dL (70-99); Osmolality,Calculated 286 (280-300); Sodium 138 mEq/L (136-145); eGFR For African Americans > 60 (> 60); eGFR For Non-African Americans > 60 (> 60)
[2016-12-10 04:29] LABS: Potassium 3.8 mEq/L (3.5-4.5)
[2016-12-10] MEDS: *HR* Heparin 5,000 UNIT/ML VIAL SQ SCH ×2 (06:38→17:13)
[2016-12-10] MEDS: Aspirin 81 MG TAB.CHEW PO SCH (08:14)
[2016-12-10] MEDS: BuPROPion XL (24 HR) 150 MG TABLET PO SCH (08:14)
[2016-12-10] MEDS: Nystatin POWDER 30 GM BOTTLE TP SCH ×3 (08:15→20:15)
[2016-12-10 11:43] LABS: Adenovirus F 40/41 PCR Not detected (Not detect); Astrovirus PCR Not detected (Not detect); Campylobacter by PCR Not detected (Not detect); Cryptosporidium by PCR Not detected (Not detect); Cyclospora cayetanensis PCR Not detected (Not detect); E. coli O157 by PCR Not detected (Not detect); Entamoeba histolytica PCR Not detected (Not detect); Enteroaggregative E.coli(EAEC) Not detected (Not detect); Enteropathogenic E.coli(EPEC) Not detected (Not detect); Enterotoxigenic E.coli (ETEC) Not detected (Not detect); Giardia lamblia PCR Not detected (Not detect); Norovirus GI/GII PCR Not detected (Not detect); Plesiomonas shigelloides PCR Not detected (Not detect); Rotavirus A PCR Not detected (Not detect); Salmonella PCR Not detected (Not detect); Sapovirus PCR Not detected (Not detect); Shig/EnteroinvasiveE coli EIEC Not detected (Not detect); Shigalike tox-prod E coli STEC Not detected (Not detect); Vibrio PCR Not detected (Not detect); Vibrio cholerae PCR Not detected (Not detect); Yersinia enterocolitica PCR Not detected (Not detect)
[2016-12-10] MEDS: Ondansetron ODT 4 MG TAB.RAPDIS SL PRN ×2 (12:40→18:40)
--- NOTE | 2016-12-10 16:50 | Internal Med Progress Note ---
Date of Encounter: 12/10/16 Time of Encounter: 10:00 - Assessment and plan (1) Aortic regurgitation Current Visit: Yes Status: Acute Assessment and plan: Mild-moderate AR with preserved LV function noted per on echocardiogram. Cardiology consult on case, may repeat echo when HR get down as outpatient. Qualifiers: Cardiac valve disease etiology: etiology unspecified Qualified Code(s): I35.1 - Nonrheumatic aortic (valve) insufficiency (2) Chest pain Current Visit: Yes Status: Acute Assessment and plan: Patient is pain-free now. D-dimer negative. Stress test are negative. Qualifiers: Chest pain type: other chest pain Qualified Code(s): R07.89 - Other chest pain; R07.8 - Other chest pain (3) Shortness of breath Current Visit: Yes Status: Acute Assessment and plan: Possibly due to malnutrition. GI and nutrition counsult on case (4) Sinus tachycardia Current Visit: Yes Status: Acute Assessment and plan: Possibly due to malnutrition. Improved on beta yissel. (5) Tobacco use Current Visit: Yes Status: Chronic Assessment and plan: Smoking cessation education. (6) DVT prophylaxis Current Visit: Yes Status: Acute Assessment and plan: Heparin sc. (7) Diarrhea Current Visit: Yes Status: Chronic Assessment and plan: Abdominal CAT scan shows colitis. GI saw patient, plan for colonoscopy on Monday. Continue hydration and follow up the BMP Qualifiers: Diarrhea type: unspecified type Qualified Code(s): R19.7 - Diarrhea, unspecified (8) Nausea & vomiting Current Visit: Yes Status: Chronic Assessment and plan: Etiology is undetermined. Patient had bariatric surgery before. Had a recent weight loss. GI is on case. Plan for EGD on Monday. Qualifiers: Vomiting type: unspecified Vomiting Intractability: unspecified Qualified Code(s): R11.2 - Nausea with vomiting, unspecified - Subjective Interval history: Pt is a 51 yoF admitted for palpitation and chest pain. PMH is significant for HTN, chronic pedal edema, anxiety, and depression. Pt was seen and examined. She is chest pain free when I see her. Severe nausea but no vomiting. Feel lightheaded. Stool sample to send for GI. Patient has No SOB. Palpitation improved under beta yissel. Three sets of troponin negative. Stress test negative. GI plan for EGD and a colonoscopy on Jonathan. - Constitutional Vitals: Temp Pulse Resp BP Pulse Ox 98.1 F 86 14 103/68 97 12/10/16 15:25 12/10/16 15:25 12/10/16 15:25 12/10/16 15:25 12/10/16 15:25 General appearance: Present: A&O X 3, no acute distress, answers questions appropriately - Head Head exam: Present: atraumatic, normocephalic - Eye Eye exam: Present: PERRL, conjuntiva pink, sclera anicteric Pupils: Present: PERRL - Neck Neck exam general surgery: Present: supple, trachea midline. Absent: lymphadenopathy - Respiratory Respiratory exam: Present: CTAB. Absent: accessory muscle use, rales, rhonchi, wheezes - Cardiovascular Cardiovascular exam: Present: RRR, +S1, +S2. Absent: diastolic murmur, gallop, rubs, systolic murmur - GI/Abdominal GI/Abdominal exam: Present: normal bowel sounds, soft, no peritoneal signs. Absent: distended, tenderness - Extremities Exam Extremities exam: Present: warm, radial pulses palpable and symetrical. Absent : calf tenderness, cyanotic, pedal edema - Neurological Exam Neurological exam: Present: CN II-XII intact, oriented X3, no focal deficits. Absent: pronater drift, facial droop, speech deficit - Skin Skin exam: Present: dry, intact Internal Medicine: Result - Labs CBC & Chem 7: 12/09/16 06:43 12/10/16 03:38 Labs: BMP 12/10/16 03:38 Sodium 138 Potassium 3.8 D Chloride 113 H Carbon Dioxide 17 L BUN 15 Creatinine 0.78 Glucose 79 Calcium 7.3 L - ABG Interpretation ABG results: PT/INR, D-dimer PT 11.4 Seconds (9.4-12.1) 12/07/16 15:37 D-Dimer 337 ng/mLFEU (0-500) 12/08/16 15:30 - VTE Reasons for not Prescribing Prophylaxis: Treatment not Indicated - Low risk for VTE Documentation of Mechanical Device: Graduated compression elastic hosiery Consult Discharge Plan - Plan Referrals: Jona Barrera MD [Primary Care Provider] -
[2016-12-10] MEDS ORDERED: SODIUM CHLORIDE/NAHCO3/KCL/PEG 4,000 ML SOLN.RECON PO ONE (19:04)
[2016-12-10] MEDS: Ringers Solution, Lactated 1,000 ML IVC SCH (23:20)
[2016-12-11] MEDS ORDERED: Metoclopramide 10 MG/2 ML VIAL IVP STA (00:38)
[2016-12-11] MEDS ORDERED: Milk and Molasses Enema 200 ML RC STA (00:38)
[2016-12-11] MEDS: *HR* Heparin 5,000 UNIT/ML VIAL SQ SCH (05:31)
[2016-12-11] MEDS ORDERED: Polyethylene Glycol 3350 255 GM POWDER PO ONE ×2 (06:30→18:00)
[2016-12-11 07:31] LABS: Alanine Aminotransferase 38 Units/L (0-55); Albumin/Globulin Ratio 0.8 (1.1-2.2); Alkaline Phosphatase 174 Units/L (38-126); Aspartate Amino Transferase 31 Units/L (5-34); BUN/Creatinine Ratio 17 (6-26); Bilirubin,Total 0.9 mg/dL (0.2-1.2); Blood Urea Nitrogen 14 mg/dL (7-20); Calcium 7.7 mg/dL (8.6-10.8); Carbon Dioxide 20 mEq/L (19-29); Chloride 108 mEq/L (98-109); Globulin 2.6 g/dL (2.4-3.5); Glucose 82 mg/dL (70-99); Magnesium 1.3 mg/dL (1.6-2.6); Osmolality,Calculated 286 (280-300); Potassium 3.4 mEq/L (3.5-4.5); Sodium 138 mEq/L (136-145); Total Protein 4.6 g/dL (6.0-8.3); eGFR For African Americans > 60 (> 60); eGFR For Non-African Americans > 60 (> 60)
[2016-12-11] MEDS ORDERED: Magnesium Sulfate 2 GM in D5% in Water 100 ML IVPB ONE (08:05)
[2016-12-11 08:08] LABS: Basophils % 0.6 %; Eosinophils % 0.3 %; Hematocrit 36.8 % (35.3-44.9); Hemoglobin 12.5 g/dL (11.5-15.4); Immature Granulocytes % 0.6 % (0-4); Lymphocytes # 1.9 K/mcL (0.6-4.6); Lymphocytes % 27.5 %; Mean Corpuscular Hemoglobin 32.8 pg (28.0-33.3); Mean Corpuscular Volume 96.6 fL (83.0-100.0); Mean Platelet Volume 9.8 fL (9.4-12.4); Monocytes # 0.3 K/mcL (0.0-1.3); Monocytes % 4.7 %; Neutrophils # 4.6 K/mcL (1.6-8.9); Platelet Count 548 K/mcL (140-400); Red Blood Count 3.81 M/mcL (3.82-4.97); Red Cell Distribution Width 13.5 % (11.5-14.5); Segmented Neutrophils % 66.3 %
[2016-12-11 10:56] LABS: % Iron Saturation 100 % (15-50); Iron 128 mcg/dL (50-170); Transferrin 91 mg/dL (180-382)
[2016-12-11 11:16] LABS: Ferritin 157 ng/ml (5-204)
[2016-12-11 11:31] LABS: Folate 6.2 ng/mL (7.0-31.4)
[2016-12-11] MEDS: Nystatin POWDER 30 GM BOTTLE TP SCH (11:48)
[2016-12-11] MEDS ORDERED: Tetracaine/Benzocaine/Butamben 200MG/SPRAY (100SPY/BOT) MM ONE (12:45)
[2016-12-11] MEDS ORDERED: Simethicone 40 MG/0.6 ML MLS IR ONE (12:45)
--- NOTE | 2016-12-11 12:46 | Pre-Sedation Evaluation ---
Pre-sedation evaluation - Pre-sedation checklist Date of procedure: 12/11/16 Procedure: EGD/COLONOSCOPY Recent Vitals: Last Vital Signs Temp 97.9 F 12/11/16 11:18 Pulse 83 12/11/16 11:18 Resp 15 12/11/16 11:18 BP 134/63 12/11/16 11:18 Pulse Ox 99 12/11/16 11:18 H&P (including ROS) documented in medical record: Yes Previous reaction to sedatives/anesthetics: No Dietary Status: NPO after Midnight Dentition: dentures removed ASA Classification *see protocol: CLASS II-Mild systemic disease Plan of Care: Pt appropriate candidate for procedure/moderate/conscious sedation , Risks/benefits of procedure/sedation discussed w/ patient/family
[2016-12-11] MEDS ORDERED: *HR* FentaNYL (PF) 100 MCG/2 ML VIAL ONE (13:00)
[2016-12-11] MEDS ORDERED: 0.9 % Sodium Chloride 500 ML IVC SCH (13:00)
[2016-12-11] MEDS ORDERED: *HR* Midazolam HCl 5 MG/5 ML VIAL IVP ONE (13:00)
[2016-12-11] MEDS: *HR* Midazolam HCl 5 MG/5 ML VIAL IVP PRN ×4 (13:09→13:17)
[2016-12-11] MEDS: *HR* FentaNYL (PF) 100 MCG/2 ML VIAL IVP PRN ×4 (13:09→13:16)
[2016-12-11 14:43] VITALS: BP 117/79
--- NOTE | 2016-12-11 14:43 | Discharge Summary ---
Date of Encounter: 12/11/16 Time of Encounter: 13:00 - Discharge Diagnosis (1) Aortic regurgitation Priority: Primary Status: Acute Qualifiers: Cardiac valve disease etiology: etiology unspecified Qualified Code(s): I35.1 - Nonrheumatic aortic (valve) insufficiency (2) Chest pain Priority: Primary Status: Acute Qualifiers: Chest pain type: other chest pain Qualified Code(s): R07.89 - Other chest pain; R07.8 - Other chest pain (3) Shortness of breath Priority: Primary Status: Acute (4) Sinus tachycardia Priority: Primary Status: Acute (5) Tobacco use Priority: Primary Status: Chronic (6) DVT prophylaxis Priority: Secondary Status: Acute (7) Diarrhea Priority: Primary Status: Chronic Qualifiers: Diarrhea type: unspecified type Qualified Code(s): R19.7 - Diarrhea, unspecified (8) Nausea & vomiting Priority: Primary Status: Chronic Qualifiers: Vomiting type: unspecified Vomiting Intractability: unspecified Qualified Code(s): R11.2 - Nausea with vomiting, unspecified - Discharge Medications Prescriptions: Metoprolol [Lopressor] 25 mg PO BID #60 tablet Home Medications: Acetaminophen [Tylenol] 500 mg PO Q6HR PRN 12/07/16 [History] Acyclovir [Zovirax] 400 mg PO BID 12/07/16 [History] Amitriptyline [Elavil] 20 mg PO HS 12/07/16 [History] Ascorbate Calcium [Vitamin C] 1,000 mg PO DAILY 12/07/16 [History] Aspirin 81 mg PO DAILY 12/07/16 [History] Bupropion HCl [Wellbutrin Xl] 300 mg PO QAM 12/07/16 [History] Cetirizine HCl [Zyrtec] 10 mg PO DAILY PRN 12/07/16 [History] Cholecalciferol (D-3) [Vitamin D] 1,000 unit PO DAILY 12/07/16 [History] Dicyclomine [Bentyl] 20 mg PO QID PRN 12/07/16 [History] Ferrous Sulfate 325 mg PO DAILY 12/07/16 [History] Fluticasone Propionate Nasal [Flonase] 50 mcg NS DAILY 12/07/16 [History] Furosemide [Lasix] 20 mg PO DAILY PRN 12/07/16 [History] L. Acidophilus/Pectin, [place] [Acidophilus Probiotic Capsule] 1 each PO DAILY [History] Loperamide [Imodium] 2 mg PO 8XD PRN 12/07/16 [History] Meloxicam [Mobic] 7.5 - 15 mg PO DAILY 12/07/16 [History] Multivitamin [Multi-Day Vitamins] 1 each PO DAILY 12/07/16 [History] Mv,Iron,Min/Folic Acid/Biotin [Hair, Skin and Nails Softgel] 66.7 mcg PO DAILY 12/07/16 [History] Nitroglycerin [Nitrostat] 0.4 mg SL Q5M PRN 12/07/16 [History] Metoprolol [Lopressor] 25 mg PO BID #60 tablet 12/11/16 [Rx] Allergies/Adverse Reactions: Allergies Bee Pollen Allergy (Verified 12/07/16 13:25) Swelling of Lip/Tongue/Throat tree nut Allergy (Verified 12/07/16 13:25) Swelling of Lip/Tongue/Throat Procedures/tests Complete & Pending: Procedures Performed prior 72 hours Category Date Time Status CT abd pelvis w iv and oral [CT] Routine Cat Scan 12/09/16 14:00 Completed EV echocardiogram Routine Y 12/08/16 20:49 Completed SP pharm nuclear stress Routine Y 12/08/16 20:48 Completed - Notes to Outpatient Provider Patient has a sinus tachycardia, metoprolol 25 mg by mouth twice a day added. Date of admission: 12/07/16 17:01 Primary care physician: Jona Barrera MD Consults: 12/08/16 13:09 Consult to Cardiology [CONS] Routine Comment: Consulting Provider: Cardiology [place] Reason for Consult: Tachycardia and possible AR Call Completed: Yes 12/09/16 08:06 Consult to Gastroenterology [CONS] Routine Consulting Provider: Gastroenterology Tran Reason for Consult: N/V, diarrhea, weight loss Call Completed: No 12/09/16 10:51 consult to bulk folder [Consult to Nutrition] [CONS] Stat Comment: Malnutrition Consulting Provider: NUTRITION Reason for Dietary Consult: Supplemental Nutrition Discharging clinician: Manasa Nguyen Anticipated date of discharge: 12/11/16 - Patient Status Disposition: Home, Self-Care Condition: Good Functional capacity at discharge: independent ambulation Overall status at discharge: patient is back to baseline - Discharge Instructions Follow Up With: Jona Barrera MD [Primary Care Provider] - - Diet and Activity Activity: increase activity as tolerated Diet: regular diet Interval History: Ms. Wong is a 51 year old female with medical history significant for HTN ( though of late she has had more of hypotension), chronic pedal edema, anxiety, depression presents to the ED on advise of her PCP with intermittent left-sided chest pain of 1 day duration. She had been evaluated yesterday by her PCP when she had complained of palpitation and SOB. At that time, she had no chest pain. He had given her a prescription for SL nITROGLYCERINE AND ADVISED HER TO GO TO THE ed IF she developed chest pain. Chest started thi morning, was dull, like someone sitting on her chest, associated with SOB. nO RADIATION OF PAIN, NO NAUSEA, VOMITING, NO DIAPHORESIS. No abdominal pain. No cfever, chills or rigors , no cough. She was been battling chronic pedal edema for which her PCP had prescribed Lasix intermittent. No PND, no orthopnea. No history of CHF. No history of CAD. She had a normal ECHO in 2007, AND A NORMAL LHC done to evaluate chest pain 12 years ago. At that time she was informed that her chest pain was more consistent with anxiety. She is FULL CODE as per discussion and nominate her daughter, Radha Barrios ([phone]) as her NOK/POA. Hospital course: Ms. Wong is a 51 year old female admitted for chest pain. She also complained of chronic nausea vomiting and diarrhea, with 50 pound weight loss in the last 5 months. Patient was admitted to rule out ACS, 3 sets of troponin negative, EKG unremarkable. Stress test that time, negative for ischemia. Echo shows suspected aortic regurgitation, cardiology saw patient and recommended follow-up as outpatient. Patient has nausea vomiting and diarrhea, abdominal CT shows colitis, patient also had weight loss. GI consult was called and EGD and colonoscopy has been done. GI cleared the patient to discharge home. Patient will follow-up with GI as outpatient. I saw patient today and examined her today. Patient is awake alert, oriented 3. Denies chest pain, shortness of breath, still nauseous but no vomiting. Vitals are stable. Will discharge patient home today. Patient will follow-up with cardiology and GI as outpatient. Patient has sinus tachycardia, metoprolol 25 mg by mouth twice a day added. Patient had AR, she was told that hold metoprolol if heart rate lower than 70. Time spent discussing smoking cessation with patient: 3 to 10 minutes - Time Spent with Patient Total time spent providing and/or coordinating discharge services: 40 minutes Greater than 30 minutes - Constitutional Vitals: Temp Pulse Resp BP Pulse Ox 97.9 F 100 16 139/68 97 12/11/16 11:18 12/11/16 13:39 12/11/16 13:39 12/11/16 13:39 12/11/16 13:39 General appearance: Present: A&O X 3, no acute distress, answers questions appropriately - Head Head exam: Present: atraumatic, normocephalic - Eye Eye exam: Present: PERRL, conjuntiva pink, sclera anicteric Pupils: Present: PERRL - Neck Neck exam general surgery: Present: supple, trachea midline. Absent: lymphadenopathy - Respiratory Respiratory exam: Present: CTAB. Absent: accessory muscle use, rales, rhonchi, wheezes - Cardiovascular Cardiovascular exam: Present: RRR, +S1, +S2. Absent: diastolic murmur, gallop, rubs, systolic murmur - GI/Abdominal GI/Abdominal exam: Present: normal bowel sounds, soft, no peritoneal signs. Absent: distended, tenderness - Extremities Exam Extremities exam: Present: pedal edema (Bilaterally), warm, radial pulses palpable and symetrical. Absent: calf tenderness, cyanotic - Neurological Exam Neurological exam: Present: CN II-XII intact, oriented X3, no focal deficits. Absent: pronater drift, facial droop, speech deficit - Skin Skin exam: Present: dry, intact - VTE Reasons for not Prescribing Prophylaxis: Treatment not Indicated - Low risk for VTE Documentation of Mechanical Device: Graduated compression elastic hosiery
[2016-12-11] MEDS: Aspirin 81 MG TAB.CHEW PO SCH (14:47)
[2016-12-11] MEDS: BuPROPion XL (24 HR) 150 MG TABLET PO SCH (14:47)
[2016-12-13 08:02] LABS: Calprotectin, Fecal 74 ug/g (<=50)
[2016-12-14 08:11] LABS: Pancreatic Elastase, Fecal 6 ug/g (>=201)
== END 2016-12-11 15:11 | disposition home or self-care (01) ==
LOC: EMEROO 13:17 → 3BNU 13:17 → SUATTDRO 17:01 → 3BNU 18:52
PROVIDERS: ADMIT Internal Medicine; ATTEND Internal Medicine
PROC: ENDOCBX (2016-12-11 13:00)

== ENCOUNTER 2017-01-25 10:55 | Inpatient (IN) ==
--- NOTE | 2017-01-25 11:47 | Emergency Department Note ---
Disposition Clinical Impression: Hypokalemia, Hypomagnesemia, Malnutrition Acute pulmonary embolism Qualifiers: Pulmonary embolism type: other Acute cor pulmonale presence: without acute cor pulmonale Qualified Code(s): I26.99 - Other pulmonary embolism without acute cor pulmonale Pneumonia Qualifiers: Pneumonia type: due to unspecified organism Laterality: unspecified laterality Lung location: unspecified part of lung Qualified Code(s): J18.9 - Pneumonia, unspecified organism Disposition: Home, Self-Care Condition: Critical Referrals: Jona Barrera MD [Primary Care Provider] - Forms: ED Satisfaction Letter SOB HPI - General Chief Complaint: ED Skin/Abscess/Foreign Body Stated Complaint: Skin issues/SOB/Tachy Time Seen by Provider: 01/25/17 11:09 Source: patient, family Limitations: no limitations Nursing Notes Reviewed: Yes Vital Signs Reviewed: Yes - History of Present Illness Pt Subjective Complaint: shortness of breath Onset (ago): week(s) (1) Severity: moderate Consistency/Duration: intermittent, gradually worsening Improves with: rest Worsens with: exertion Associated symptoms: Reports: lower extremity pain (edema), rash. Denies: chest pain, wheezing, sputum production, syncope Treatment prior to arrival: none Cough present: No Sputum production: No - Related Data Home Medications Medication Instructions Recorded Confirmed Acetaminophen [Tylenol] 500 mg PO Q6HR PRN 12/07/16 01/25/17 Acyclovir [Zovirax] 400 mg PO BID 12/07/16 12/07/16 Amitriptyline [Elavil] 20 mg PO HS 12/07/16 01/25/17 Ascorbate Calcium [Vitamin C] 1,000 mg PO DAILY 12/07/16 01/25/17 Aspirin 81 mg PO DAILY 12/07/16 12/07/16 Bupropion HCl [Wellbutrin Xl] 300 mg PO QAM 12/07/16 01/25/17 Cetirizine HCl [Zyrtec] 10 mg PO DAILY PRN 12/07/16 01/25/17 Cholecalciferol (D-3) [Vitamin D] 1,000 unit PO DAILY 12/07/16 01/25/17 Dicyclomine [Bentyl] 20 mg PO QID PRN 12/07/16 01/25/17 Ferrous Sulfate 325 mg PO DAILY 12/07/16 01/25/17 Fluticasone Propionate Nasal 50 mcg NS DAILY 12/07/16 01/25/17 [Flonase] Furosemide [Lasix] 40 mg PO DAILY PRN 12/07/16 01/25/17 L. Acidophilus/Pectin, [place] 1 each PO DAILY 12/07/16 01/25/17 [Acidophilus Probiotic Capsule] Meloxicam [Mobic] 7.5 - 15 mg PO DAILY 12/07/16 12/07/16 Multivitamin [Multi-Day Vitamins] 1 each PO DAILY 12/07/16 01/25/17 Mv,Iron,Min/Folic Acid/Biotin 66.7 mcg PO DAILY 12/07/16 01/25/17 [Hair, Skin and Nails Softgel] Nitroglycerin [Nitrostat] 0.4 mg SL Q5M PRN 12/07/16 01/25/17 Metoprolol [Lopressor] 25 mg PO BID PRN 01/25/17 01/25/17 Potassium Chloride [Klor-Con] 20 meq PO DAILY 01/25/17 01/25/17 Allergies Allergy/AdvReac Type Severity Reaction Status Date / Time Bee Pollen Allergy Swelling Verified 12/07/16 13:25 of Lip/Tongue/Throat tree nut Allergy Swelling Verified 12/07/16 13:25 of Lip/Tongue/Throat adhesive AdvReac Rash Verified 01/25/17 15:26 All systems ED: reviewed and negative except as stated. Constitutional: Denies: fever Cardiovascular: Reports: chest pain Past Medical History - Past Medical History Source: patient, old records reviewed, obtained from family, nursing notes reviewed Medical history: Reports: hypertension, other Surgical history: Reports: cholecystectomy Psychiatric history: Reports: no psych history - Social History Smoking Status: Current every day smoker Smokeless Tobacco Status: No Alcohol use: Reports: none Drug use: Reports: none Physical Exam - General Limitations: no limitations General appearance: alert, in no apparent distress - Head Head exam: atraumatic, normocephalic, normal inspection - Eye Eye exam: Present: normal appearance, PERRL, EOMI - Expanded Eye Exam Pupils: Left: reactive - ENT ENT exam: normal exam, normal oropharynx, mucous membranes moist - Expanded ENT Exam External ear exam: Present: normal external inspection Mouth exam: Present: normal external inspection Teeth exam: Present: normal inspection Throat exam: Present: normal inspection - Neck Neck exam: Present: normal inspection, full ROM, trachea midline - Chest Chest inspection: Present: normal inspection, symmetric chest wall rise - Respiratory Respiratory exam: Present: normal lung sounds bilaterally - Cardiovascular Cardiovascular exam: Present: regular rate, normal rhythm, normal heart sounds - Abdominal Exam Abdominal exam: Present: soft, Non-Tender. Absent: tenderness, distention, guarding, rebound, rigidity - Extremities Exam Extremities exam: Present: normal inspection, full ROM. Absent: tenderness, pedal edema - Expanded Upper Extremity Exam Shoulder exam: Present: normal inspection, full ROM Arm exam: Present: normal inspection, full ROM Elbow exam: Present: normal inspection, full ROM Forearm/Wrist exam: Present: normal inspection, full ROM Hand exam: Present: normal inspection, full ROM Vascular exam: Normal: capillary refill, radial pulse - Expanded Lower Extremity Exam Hip/Pelvis exam: Present: normal inspection, full ROM Upper leg exam: Present: normal inspection, full ROM Knee exam: Present: normal inspection, full ROM Lower leg exam: Present: other (bilat pitting edeam) Ankle exam: Present: normal inspection, full ROM Foot/toe exam: Present: normal inspection, full ROM Neurovascular/Tendon exam: Absent: motor deficit, sensory deficit, tendon deficit - Back Exam Back exam: Present: normal inspection, full ROM. Absent: tenderness - Neurological Exam Neurological exam: Present: alert, oriented X3 - Expanded Neurological Exam Patient oriented to: Present: person, place, time Coma Scale Eye Opening: Spontaneous Coma Scale Motor Response: Obeys Commands Coma Scale Verbal Response: Oriented Coma Scale Total: 15 - Psychiatric Psychiatric exam: Present: normal affect, normal mood - Skin Skin exam: Present: rash (diffuse patchy rash more involved on the torso) Course Vital Signs Temperature 97.8 F 01/25/17 11:01 Pulse Rate 118 01/25/17 11:01 Respiratory Rate 16 01/25/17 11:01 Blood Pressure 0/0 01/25/17 11:01 O2 Sat by Pulse Oximetry 100 01/25/17 11:01 Temperature 97.8 F 01/25/17 11:01 Pulse Rate 108 01/25/17 16:22 Respiratory Rate 16 01/25/17 16:22 Blood Pressure 104/55 01/25/17 16:22 O2 Sat by Pulse Oximetry 97 01/25/17 16:22 Oxygen Delivery Oxygen Delivery Room Air Shortness of Breath/Dyspnea - Differential Diagnosis Likely: acute exacerbation of chronic obstructive airways disease, congestive heart failure, pneumonia, asthma with exacerbation, pulmonary embolism, arrhythmia - Medical Records Medical records reviewed: Yes I reviewed the patient's medical records. - Lab Data Lab results reviewed: Yes I reviewed the patient's lab results. Result diagrams: 01/25/17 12:35 01/25/17 12:35 Lab Results 01/25/17 01/25/17 01/25/17 Range/Units 12:35 12:35 12:35 WBC 16.1 H (4.3-11.1) K/mcL RBC 3.88 (3.82-4.97) M/mcL Hgb 12.5 (11.5-15.4) g/dL Hct 37.2 (35.3-44.9) % MCV 95.9 (83.0-100.0) fL MCH 32.2 (28.0-33.3) pg MCHC 33.6 (31.6-35.5) g/dL RDW 14.8 H (11.5-14.5) % Plt Count 342 (140-400) K/mcL MPV 10.1 (9.4-12.4) fL Immature Gran % 0.4 (0-4) % Seg Neutrophils % 82.9 % Lymphocytes % 10.9 % Monocytes % 4.3 % Eosinophils % 1.2 % Basophils % 0.3 % Neutrophils # 13.4 H (1.6-8.9) K/mcL Lymphocytes # 1.8 (0.6-4.6) K/mcL Monocytes # 0.7 (0.0-1.3) K/mcL Eosinophils # 0.2 (0.0-0.6) K/mcL Basophils # 0.1 (0.0-0.2) K/mcL PT 14.9 H (9.4-12.1) Seconds INR 1.4 APTT 25.8 L (26.0-36.0) Seconds D-Dimer 2272 H (0-500) ng/mLFEU Sodium 133 L (136-145) mEq/L Potassium 2.8 L (3.5-4.5) mEq/L Chloride 98 (98-109) mEq/L Carbon Dioxide 24 (19-29) mEq/L BUN 16 (7-20) mg/dL Creatinine 1.29 H (0.57-1.11) mg/dL Est GFR ( Amer) 52 L (> 60) Est GFR (Non-Af Amer) 43 L (> 60) BUN/Creatinine Ratio 12 (6-26) Glucose 112 H (70-99) mg/dL Calculated Osmolality 278 L (280-300) Lactic Acid (0.5-2.2) mmol/L Calcium 7.1 L (8.6-10.8) mg/dL Magnesium 1.0 L (1.6-2.6) mg/dL Total Bilirubin 2.6 H (0.2-1.2) mg/dL Direct Bilirubin 2.0 H (0.0-0.5) mg/dL Indirect Bilirubin 0.6 (0.0-1.2) mg/dL AST 34 (5-34) Units/L ALT 56 H (0-55) Units/L Alkaline Phosphatase 240 H (38-126) Units/L Troponin I (0-0.03) ng/mL B-Natriuretic Peptide (0-100) pg/mL Serum Total Protein 4.4 L (6.0-8.3) g/dL Albumin 1.5 L (3.5-5.0) g/dL Globulin 2.9 (2.4-3.5) g/dL Albumin/Globulin Ratio 0.5 L (1.1-2.2) 01/25/17 01/25/17 01/25/17 Range/Units 12:35 12:35 14:40 WBC (4.3-11.1) K/mcL RBC (3.82-4.97) M/mcL Hgb (11.5-15.4) g/dL Hct (35.3-44.9) % MCV (83.0-100.0) fL MCH (28.0-33.3) pg MCHC (31.6-35.5) g/dL RDW (11.5-14.5) % Plt Count (140-400) K/mcL MPV (9.4-12.4) fL Immature Gran % (0-4) % Seg Neutrophils % % Lymphocytes % % Monocytes % % Eosinophils % % Basophils % % Neutrophils # (1.6-8.9) K/mcL Lymphocytes # (0.6-4.6) K/mcL Monocytes # (0.0-1.3) K/mcL Eosinophils # (0.0-0.6) K/mcL Basophils # (0.0-0.2) K/mcL PT (9.4-12.1) Seconds INR APTT (26.0-36.0) Seconds D-Dimer (0-500) ng/mLFEU Sodium (136-145) mEq/L Potassium (3.5-4.5) mEq/L Chloride (98-109) mEq/L Carbon Dioxide (19-29) mEq/L BUN (7-20) mg/dL Creatinine (0.57-1.11) mg/dL Est GFR ( Amer) (> 60) Est GFR (Non-Af Amer) (> 60) BUN/Creatinine Ratio (6-26) Glucose (70-99) mg/dL Calculated Osmolality (280-300) Lactic Acid 3.8 H (0.5-2.2) mmol/L Calcium (8.6-10.8) mg/dL Magnesium (1.6-2.6) mg/dL Total Bilirubin (0.2-1.2) mg/dL Direct Bilirubin (0.0-0.5) mg/dL Indirect Bilirubin (0.0-1.2) mg/dL AST (5-34) Units/L ALT (0-55) Units/L Alkaline Phosphatase (38-126) Units/L Troponin I 0.00 (0-0.03) ng/mL B-Natriuretic Peptide 87 (0-100) pg/mL Serum Total Protein (6.0-8.3) g/dL Albumin (3.5-5.0) g/dL Globulin (2.4-3.5) g/dL Albumin/Globulin Ratio (1.1-2.2) - Radiology Data Radiology results reviewed: Yes I reviewed the patient's radiology results. Critical Care Time Critical Care Time: Yes Total Critical Care Time: 45 Attestation: The high probability of a clinically significant, sudden or life threatening deterioration of the [] system(s) required my full and direct attention, intervention and personal management. The aggregate critical care time was [] minutes. This time is in addition to time spent performing reported procedures but includes the following: [] Data Review and interpretation [] Patient assessment and monitoring of vital signs [] Documentation [] Medication orders and management
[2017-01-25 12:43] LABS: Basophils # 0.1 K/mcL (0.0-0.2); Basophils % 0.3 %; Eosinophils # 0.2 K/mcL (0.0-0.6); Eosinophils % 1.2 %; Hematocrit 37.2 % (35.3-44.9); Hemoglobin 12.5 g/dL (11.5-15.4); Immature Granulocytes % 0.4 % (0-4); Lymphocytes # 1.8 K/mcL (0.6-4.6); Lymphocytes % 10.9 %; Mean Corpuscular HGB Conc 33.6 g/dL (31.6-35.5); Mean Corpuscular Hemoglobin 32.2 pg (28.0-33.3); Mean Corpuscular Volume 95.9 fL (83.0-100.0); Mean Platelet Volume 10.1 fL (9.4-12.4); Monocytes # 0.7 K/mcL (0.0-1.3); Monocytes % 4.3 %; Neutrophils # 13.4 K/mcL (1.6-8.9); Platelet Count 342 K/mcL (140-400); Red Blood Count 3.88 M/mcL (3.82-4.97); Red Cell Distribution Width 14.8 % (11.5-14.5); Segmented Neutrophils % 82.9 %
[2017-01-25 12:48] LABS: INR 1.4; Prothrombin Time 14.9 Seconds (9.4-12.1)
[2017-01-25 12:50] LABS: Activated Partial Thrombo Time 25.8 Seconds (26.0-36.0)
[2017-01-25 12:57] LABS: Albumin/Globulin Ratio 0.5 (1.1-2.2); Bilirubin,Indirect 0.6 mg/dL (0.0-1.2); Bilirubin,Total 2.6 mg/dL (0.2-1.2); Calcium 7.1 mg/dL (8.6-10.8); Globulin 2.9 g/dL (2.4-3.5); Potassium 2.8 mEq/L (3.5-4.5); Total Protein 4.4 g/dL (6.0-8.3)
[2017-01-25 12:58] LABS: Albumin 1.5 g/dL (3.5-5.0)
[2017-01-25] MEDS ORDERED: 0.9 % Sodium Chloride 1,000 ML IVC ONE (13:38)
[2017-01-25] MEDS ORDERED: *HR* Heparin 5,000 UNIT/ML VIAL IVP ONE (14:22)
[2017-01-25] MEDS ORDERED: Piperacillin/Tazobactam 3.375 GM in D5% in Water (Mini-Bag+) 100 ML IVPB ONE (14:22)
[2017-01-25] MEDS ORDERED: *HR* Heparin 5,000 UNIT/ML VIAL IVP PRN ×2 (14:22)
[2017-01-25] MEDS ORDERED: Acetaminophen 325 MG TABLET PO ONE (14:43)
[2017-01-25] MEDS ORDERED: Magnesium Sulfate 2 GM in D5% in Water 100 ML IVPB ONE (15:31)
--- NOTE | 2017-01-25 16:07 | Internal Med History&Physical ---
<Rancho Rice - Last Filed: 01/25/17 17:47> Date of Encounter: 01/25/17 Time of Encounter: 14:50 Assessment and Plan (1) Acute pulmonary embolism Current visit: Yes Status: Acute CTA of the chest was performed in the ED with a D-dimer of 2272 and shortness of breath. CTA demonstrates acute predominantly right upper lobe pulmonary emboli. NO hx of DVT or emboli, denies hx of clotting disorder or family hx of clotting disorder. Denies any provoking factors. Denies known cancer or hx of cancer. - At the moment provoking cause in unknown, further evaluation is warranted. Plan: - Start Heparin drip with plans to transition to PO anticoagulation - US b/l LE Qualifiers: Pulmonary embolism type: other Acute cor pulmonale presence: without acute cor pulmonale Qualified Code(s): I26.99 - Other pulmonary embolism without acute cor pulmonale (2) Pneumonia Current visit: Yes Status: Acute Possible pneumonia with Chest CTA demonstrating bilateral patchy pulmonary opacities that may represent bronchopneumonia. She does have an elevated WBC 16.1, Neutrophil count 13.7, Lactic acidosis and shortness of breath. This does meet guidline criteria for Sepsis but is not convincing for a sepsis picture. - No tachypnea, Oxygen saturations > 90% on room air. Plan: - Levaquin 750 IV Q48hrs. Qualifiers: Pneumonia type: due to unspecified organism Laterality: unspecified laterality Lung location: unspecified part of lung Qualified Code(s): J18.9 - Pneumonia, unspecified organism (3) Sinus tachycardia Current visit: No Status: Acute Patient is sinus tachycardia with HR ~112. She was tachycardiac a month prior and had followed up with cardiology in the outpatient with discontinuation of her Lisinopril and started Metoprolol 25 PO BID. She had not taken the last several doses do to low blood pressures. - Suspect tachycardia from electrolyte imbalance and intravascular volume loss from hypoalbumnemia. Plan: - Cardiac monitoring - Replace electrolytes - continue treating underlining etiology. - Hold beta-yissel as this is not addressing the underline cause. (4) Hypokalemia Current visit: Yes Status: Acute Potassium level 2.8, Cause is unknown. Patient did recently start Lasix 40mg PO BID PRN, she is also taking potassium 20meq daily. - Received 40meq PO Potassium in the ED Plan: - Continue PO Potassium replacement 40meq BID Q12hrs x 2 doses - Monitor with am labs. Increase replacement as needed. (5) Hypomagnesemia Current visit: Yes Status: Acute Magnesium level 1.0 upon admission. She received 4gm Magnesium in the ED. Loss is unknown if chronic but previous Mg level was 1.3 one month prior. Suspect loss with malnutrition, also recent diarrhea but recent resolution. Plan: - magnesium level at midnight and again at 0400 tomorrow. - Replace with depletion. (6) Aortic regurgitation Current visit: No Status: Acute Mild-moderate AR with preserved LV function noted per on echocardiogram () - Following with cardiology in the outpatient setting. Qualifiers: Cardiac valve disease etiology: etiology unspecified Qualified Code(s): I35.1 - Nonrheumatic aortic (valve) insufficiency (7) Nausea & vomiting Current visit: No Status: Chronic Patient has had nausea/vomiting since February of last year. exacerbated with PO intake. - Likely contributing to her malnutrition. - recent cholecystectomy - with recent hx of diarrhea she had both endoscopy and colonoscopy without significant findings including biopsy results. Plan: - Antinausea medication coverage PRN. Qualifiers: Vomiting type: unspecified Vomiting Intractability: unspecified Qualified Code(s): R11.2 - Nausea with vomiting, unspecified (8) Severe protein-calorie malnutrition Current visit: Yes Status: Acute Albumin 1.5, With diffuse anasarca. contributing factors: poor oral intake, Cheyanne -en-Y in 2003, chronic nausea and vomiting. Plan: - Dietary consultation - Increased caloric and protein in diet (9) Anasarca Current visit: Yes Status: Acute Diffuse anasarca likely secondary to protein malnutrition. Addressing nutritional status. Plan: - Albumin Q8hr X3 doses - One dose of 40 Lasix in am, and then schedule if BP and renal function are stable. (10) Elevated INR Current visit: Yes Status: Acute Elevated INR of 1.4 likely secondary to malnutrition. Will monitor for other causes of infection. (11) Lactic acidosis Current visit: Yes Status: Acute Lactic acid of 3.8. Concern if this from poor malnutrition or infectious etiology. - Elevated WBC, tachycardia, diffuse body rash, JENNA, and electrolyte imbalance, possible pneumonia Plan: - repeat lactic acid in am. - evaluate for other sources of infection. (12) Rash Current visit: Yes Status: Acute Diffuse body rash that is erythematous eczematous rash with eroded areas with serous drainage over trunk, bilateral arms, groin, buttocks, and bilateral legs - Seen by dermatology today with plans of skin biopsy but was delayed do to shortness of breath. Plan: - Skin punch biopsy could be collected during inpatient stay and sent to pathology. Rash may be contributing to or secondary to underlining illness. (13) JENNA (acute kidney injury) Current visit: Yes Status: Acute JENNA with previously normal renal function. Likely secondary to poor intravascular volume and extravascular shift. Will work on improving intravascular volume to improve renal function. Plan: - collect UA - Urine creatinine/protein - monitor with am labs. (14) History of Cheyanne-en-Y gastric bypass Current visit: Yes Status: Acute patient hx. maybe contributing. (15) DVT prophylaxis Current visit: No Status: Acute Patient on heparin drip for PE. Internal Medicine - H&P: HPI Chief complaint: shortness of breath Admitted From: Emergency Dept Plans for Post Hospital Care: Home History of present illness: Ms. Wong is a 51 year old female with medical history significant for chronic pedal edema, anxiety, depression, HTN, herpes virus, chronic N/V/D, obesity s/p Cheyanne-En-Y gastric bypass in 2003 was sent from her dermatologists office for shortness of breath. She says that her shortness of breath started 3 days ago in the morning when she was home. She says the shortness of breath came on suddenly and never really improved. She has also felt weak and has had difficulty with ambulating and walking. She has also had light headedness with ambulation or change in position. She describes all of her symptoms as begining around February of 2016 with frequent nausea and vomiting exacerbated by PO intake. She vomits at least once per day and occasionally more. Her vomit has usually been food she eats and occasional water with bile. This has continued to her current admission. She has followed up with her PCP regularly regarding her medical concerns. In July of 2016 she started having swelling in her LE that has gradually worsened over time and then included her bilateral upper extremities, face and now abdomen. She has also felt more uncoordinated in her gait since July too. She was told she is malnourished but says she has trouble with keeping caloric intake down due to the vomiting. She says she is not trying to avoid food and actually loves food but the vomiting has hindered her ability to eat. She denies any history of having low or abnormal electrolytes. When asked about her diffuse rash she says that the rash started on the medial portion of her left upper extremity and has spread across her entire body over the past month or so. She describes the rash as diffuse, itchy and painful. She presented to the [facility] today to have this rash evaluated but was unable to have a biopsy of the rash because she was so short of breath. She denies any fevers, chills, hx of cancer, weight loss or any other new symptoms. She admits that she has two cracked teeth on her lower mandible and upper dentures placed 5 years ago. She quit smoking one month ago. She had a recent admission for chest pain last month ( 12/06/2016) for which she said she had seen cardiology and GI and was told her chest pain was from malnutrition. She says that she has never had a PE, DVT or any other blood clot or bleeding disorder in the past. She denies any family hx of clotting disorders. She said she fell trying to ambulated from the toilet on Monday and denies hitting her head or injuring her limbs. She denies any previous injury. Past Med Surg Social Fam HX - Past Medical History Medical history: hypertension, other Psychiatric history: no psych history - Past Surgical History Surgical History: cholecystectomy, HEBER/BSO, bariatric surgery - Social History Smoking Status: Former smoker Smokeless Tobacco Status: No Alcohol use: none Drug use: none - Family History Father Hx Family Cardiac Disorders: Yes (HYPERTENSION.) Hx Family Neurologic Disorders: Yes (cva) Mother Hx Family Endocrine Disorder: Yes (DM2) Internal Medicine - H&P: Meds Acetaminophen [Tylenol] 500 mg PO Q6HR PRN 12/07/16 [History] Acyclovir [Zovirax] 400 mg PO BID 12/07/16 [History] Amitriptyline [Elavil] 20 mg PO HS 12/07/16 [History] Ascorbate Calcium [Vitamin C] 1,000 mg PO DAILY 12/07/16 [History] Aspirin 81 mg PO DAILY 12/07/16 [History] Bupropion HCl [Wellbutrin Xl] 300 mg PO QAM 12/07/16 [History] Cetirizine HCl [Zyrtec] 10 mg PO DAILY PRN 12/07/16 [History] Cholecalciferol (D-3) [Vitamin D] 1,000 unit PO DAILY 12/07/16 [History] Dicyclomine [Bentyl] 20 mg PO QID PRN 12/07/16 [History] Ferrous Sulfate 325 mg PO DAILY 12/07/16 [History] Fluticasone Propionate Nasal [Flonase] 50 mcg NS DAILY 12/07/16 [History] Furosemide [Lasix] 40 mg PO DAILY PRN 12/07/16 [History] L. Acidophilus/Pectin, [place] [Acidophilus Probiotic Capsule] 1 each PO DAILY [History] Meloxicam [Mobic] 7.5 - 15 mg PO DAILY 12/07/16 [History] Multivitamin [Multi-Day Vitamins] 1 each PO DAILY 12/07/16 [History] Mv,Iron,Min/Folic Acid/Biotin [Hair, Skin and Nails Softgel] 66.7 mcg PO DAILY 12/07/16 [History] Nitroglycerin [Nitrostat] 0.4 mg SL Q5M PRN 12/07/16 [History] Metoprolol [Lopressor] 25 mg PO BID PRN 01/25/17 [History] Potassium Chloride [Klor-Con] 20 meq PO DAILY 01/25/17 [History] Allergies Bee Pollen Allergy (Verified 12/07/16 13:25) Swelling of Lip/Tongue/Throat tree nut Allergy (Verified 12/07/16 13:25) Swelling of Lip/Tongue/Throat adhesive Adverse Reaction (Verified 01/25/17 15:26) Rash All Systems PM: A 10-system review of systems was performed and is negative for pertinent findings except as documented above in the HPI. - Constitutional Constitutional: fatigue, falls, lethargy, weakness, no anorexia, no excessive sweating, no fever(s), no night sweats, no weight loss - EENT Eyes: no blurry vision, no diplopia, no loss of vision, no pain Nose, mouth and throat: dental pain, no epistaxis, no mouth lesions, no nasal discharge, no neck mass, no sinus pressure, no sore throat, no throat swelling, no tongue swelling - Breasts Breasts: no pain - Cardiovascular Cardiovascular ROS IM: dyspnea, dyspnea on exertion, edema, lightheadedness, no claudication, no diaphoresis, no palpitations, no syncope - Respiratory Respiratory: dyspnea, no hemoptysis, no wheezing, no snoring - Gastrointestinal Gastrointestinal: nausea, vomiting, no constipation, no cramping, no diarrhea, no hematemesis, no hematochezia, no loose stools, no melena - Genitourinary Genitourinary: no dysuria - Musculoskeletal Musculoskeletal ROS IM: muscle weakness, no myalgias - Integumentary Integumentary IM: rash, no unusual bruising, no jaundice - Neurological Neurological ROS: dizziness, frequent falls, no loss of vision, no memory loss - Psychiatric Psychiatric: depression - Constitutional Vitals: Temp Pulse Resp BP Pulse Ox 97.8 F 119 18 108/83 97 01/25/17 11:01 01/25/17 14:26 01/25/17 14:26 01/25/17 14:26 01/25/17 14:26 General appearance: Present: cooperative, A&O X 3, pleasant, no acute distress - Head Head exam: Present: atraumatic Additional comments: diffuse facial edema. pale skin - Eye Eye exam: Present: PERRL, conjuntiva pink, sclera anicteric Pupils: Present: PERRL - ENT ENT exam: Present: mucous membranes moist Additional comments: poor dentition. Upper dentures, gingivitis with excess plaque on the bottom. - Neck Neck exam general surgery: Present: supple, trachea midline. Absent: lymphadenopathy - Respiratory Respiratory exam: Present: CTAB - Cardiovascular Cardiovascular exam: Present: tachycardia - GI/Abdominal Additional comments: Abdomen is obese, tender to palpation, with signs of old abdominal surgery scars. She has a diffuse abdominal rash that was slothing and patchy. - Extremities Exam Extremities exam: Present: pedal edema, warm, radial pulses palpable and symetrical Additional comments: 2+ bilateral LE edema up to waist, Skin with diffuse rash and slothing of tissue. - Neurological Exam Neurological exam: Present: alert. Absent: pronater drift, facial droop, speech deficit - Psychiatric Psychiatric exam: Present: normal affect, normal mood - Skin Skin exam: Present: rash (diffuse skin rash and slothing of tissue, patchy from the neck through the thighs. ) Internal Med - H&P Results - Labs CBC & Chem 7: 01/25/17 12:35 01/25/17 12:35 Labs: Short CBC 01/25/17 Range/Units 12:35 WBC 16.1 H (4.3-11.1) K/mcL Hgb 12.5 (11.5-15.4) g/dL Hct 37.2 (35.3-44.9) % Plt Count 342 (140-400) K/mcL Neutrophils # 13.4 H (1.6-8.9) K/mcL BMP 01/25/17 12:35 Sodium 133 L Potassium 2.8 L Chloride 98 Carbon Dioxide 24 BUN 16 Creatinine 1.29 H Glucose 112 H Calcium 7.1 L Cardiac Enzymes 01/25/17 Range/Units 12:35 Troponin I 0.00 (0-0.03) ng/mL Liver Function 01/25/17 Range/Units 12:35 Total Bilirubin 2.6 H (0.2-1.2) mg/dL Direct Bilirubin 2.0 H (0.0-0.5) mg/dL AST 34 (5-34) Units/L ALT 56 H (0-55) Units/L Alkaline Phosphatase 240 H (38-126) Units/L Albumin 1.5 L (3.5-5.0) g/dL - Impressions ITS Impressions Chest X-Ray 01/25/17 11:21 IMPRESSION: Mild bilateral atelectasis. D/ / 01/25/2017 11:51:57 Chuck Yañez MD / deborah Interpreting Provider: Chuck Yañez MD Chest CTA 01/25/17 13:04 IMPRESSION: 1. Acute predominantly right upper lobe pulmonary emboli. No CT evidence of right heart strain. 2. Bilateral patchy pulmonary opacities which could represent atelectasis versus possible developing pulmonary infarcts versus bronchopneumonia or possible eosinophilic pneumonia. 3. Mild left pleural effusion and moderate upper abdominal ascites. Critical results were called by Dr. Chuck Yañez MD to Moises Noriega on 01/25/2017 at 14:20. D/ / 01/25/2017 14:29:42 Chuck Yañez MD / deborah Interpreting Provider: Chuck Yañez MD <Ruben Rich T - Last Filed: 01/25/17 18:42> Date of Encounter: 01/25/17 Internal Medicine - H&P: HPI History of present illness: Ms. Wong is a 51 year old female All Systems PM: A 10-system review of systems was performed and is negative for pertinent findings except as documented above in the HPI. - Constitutional Vitals: Temp Pulse Resp BP Pulse Ox 97.8 F 108 16 108/79 97 01/25/17 11:01 01/25/17 16:22 01/25/17 17:22 01/25/17 17:22 01/25/17 16:22 Internal Med - H&P Results - Labs CBC & Chem 7: 01/25/17 12:35 01/25/17 12:35 - Attending Attestation I have independently interviewed and examined this patient. I have discussed this patient with the patient and her family and resident physician, Dr. Rice and his documentation reflects our plan of care with the following addendum Patient is seen at bedside with her daughter 51 Y/O F with extensive medical history. She has a PMH of gastric bypass 14 years ago, HTN, Anasarca, Tobacco abuse, quit one month ago, recurrent falls, protein-calorie malnutrition, and hypoabuminemia. She presents from the dermatologists office with acute onset SOB, she also reports worsening edema, low blood pressures and fast heart rate at home, prior to presentation. She denies pleuritic chest pain, cough, nausea, or vomiting, her chronic diarrhea has resolved Physical exam revealed a chronically ill-looking middle aged female in no form of distress, apart from tachycardia, slightly low diastolic BP, she is not hypoxic. She has a diffuse skin rash, scaly and weeping, worse on skin creases but spreading across her neck, axillary region, abdominal fold and thigh region. Chest is CTAB, Heart sounds S1, S2, she had ascites by shifting dullness , abdomen is not tender, she has diffuse 3+ pitting edema on all extremities. Labs and Imaging reviewed: Leukocytosis with left shift, no anemia, PLT WNL, hypokalemia, hypomagnessemia, JENNA with lactic acidosis, mild hyperbilirubinemia , and hypoalbuminemia. Chest CTA with R segmental PE, no evidence of R heart strain, bilateral bronchopneumonia, EKG with sinus tachycardia, low voltage. Assessment/Plan-*acute unprovoked sub-segmental hemodynamically stable PE, no hypoxia, continue heparin drip, transition to po once regimen is confirmed, obtain bilateral LE doppler*Suspected sepsis with possible source being her lungs with elevated lactate, Received IVF in ER, repeat lactate , BP is acceptable for now, follow cultures, *patient with significant anasarca and mild JENNA, attempt albumin and Lasix diuresis, obtain UA and protein creatinine ration to r/o nephrotic syndrome, consult nephrology, *multiple electrolyte abnormalities including hypokalemia, hypomagnesemia, replace aggressively and repeat labs later tonight. *Protein-Calorie malnutrition, consult in house cra, check Vitamin levels, *diffuse body rash is possibly fungal, dermatology was following out-patient, nystatin ointment/powder for now, punch biopsy in- patient if possible. *HTN/Mild AR/Stable , resume home meds Rest of details as in residents documentation ..
[2017-01-25] MEDS: Heparin 25,000 UNIT/500 ML D5W 25,000 UNIT/500 ML MLS IVC SCH (17:04)
[2017-01-25] MEDS ORDERED: Naloxone 0.4 MG/ML INJ IVP PRN (17:09)
[2017-01-25 17:40] LABS: Phosphorous 4.6 mg/dL (2.3-4.7)
[2017-01-25] MEDS ORDERED: Levofloxacin 750 MG/150 ML 750 MG/150 ML BAG IVPB SCH (18:00)
[2017-01-25 18:57] LABS: Folate 11.7 ng/mL (7.0-31.4)
[2017-01-25] MEDS: *HR* Promethazine 25 MG/ML VIAL IVP PRN (20:36)
[2017-01-25] MEDS ORDERED: *HR* Metoprolol 5 MG/5 ML VIAL IVP PRN (22:41)
[2017-01-25 23:13] LABS: Bilirubin,Urine Moderate (Negative); Blood,Urine Negative (Negative); Clarity,Urine Cloudy (Clear); Color,Urine Orange (Yellow); Glucose,Urine (UA) Normal (Normal); Ketones,Urine Trace mg/dL (Negative); Leukocyte Esterase,Urine Large (Negative); Nitrite,Urine Negative (Negative); Protein,Urine Negative (Neg-Trace); Specific Gravity,Urine > 1.030 (1.010-1.025)
[2017-01-25 23:18] LABS: Bacteria,Urine Few per hpf (None-Few); Hyaline Casts,Urine None Seen per lpf (None-Few); Squamous Epithelial Cell,Urine Many per lpf (None-Few); WBC,Urine TNTC per hpf (0-3)
[2017-01-26] MEDS ORDERED: Albumin 25% 25gram/100mL 25 GM/100 ML IV.SOLN IVPB SCH
[2017-01-26] MEDS: Nystatin POWDER 30 GM BOTTLE TP SCH ×3 (00:35→21:22)
[2017-01-26] MEDS: Nystatin OINT 15 GM TUBE TP SCH ×5 (00:35→21:22)
[2017-01-26] MEDS: *HR* HYDROmorphone (PF) 1 MG/ML SYRINGE IV PRN ×4 (00:36→22:04)
[2017-01-26 01:56] LABS: Basophils % 0.2 %; Eosinophils # 0.1 K/mcL (0.0-0.6); Eosinophils % 0.4 %; Immature Granulocytes % 0.6 % (0-4); Lymphocytes # 1.3 K/mcL (0.6-4.6); Lymphocytes % 9.4 %; Mean Corpuscular HGB Conc 34.7 g/dL (31.6-35.5); Mean Corpuscular Hemoglobin 32.6 pg (28.0-33.3); Mean Platelet Volume 10.5 fL (9.4-12.4); Monocytes # 0.7 K/mcL (0.0-1.3); Monocytes % 4.9 %; Neutrophils # 12.1 K/mcL (1.6-8.9); Nucleated Red Blood Cells 0.1 /100 WBC (0); Platelet Count 363 K/mcL (140-400); Red Blood Count 3.19 M/mcL (3.82-4.97); Red Cell Distribution Width 14.9 % (11.5-14.5); Segmented Neutrophils % 84.5 %
[2017-01-26 01:57] LABS: Hemoglobin 10.4 g/dL (11.5-15.4)
[2017-01-26 02:01] LABS: INR 1.7; Prothrombin Time 18.4 Seconds (9.4-12.1)
[2017-01-26 02:10] LABS: Alanine Aminotransferase 46 Units/L (0-55); Albumin/Globulin Ratio 0.5 (1.1-2.2); Alkaline Phosphatase 205 Units/L (38-126); Aspartate Amino Transferase 24 Units/L (5-34); BUN/Creatinine Ratio 18 (6-26); Bilirubin,Total 1.9 mg/dL (0.2-1.2); Blood Urea Nitrogen 16 mg/dL (7-20); Calcium 6.6 mg/dL (8.6-10.8); Carbon Dioxide 19 mEq/L (19-29); Chloride 100 mEq/L (98-109); Globulin 2.3 g/dL (2.4-3.5); Glucose 132 mg/dL (70-99); Magnesium 1.3 mg/dL (1.6-2.6); Osmolality,Calculated 275 (280-300); Phosphorous 4.4 mg/dL (2.3-4.7); Potassium 3.2 mEq/L (3.5-4.5); Sodium 131 mEq/L (136-145); eGFR For African Americans > 60 (> 60); eGFR For Non-African Americans > 60 (> 60)
[2017-01-26 02:12] LABS: Albumin 1.2 g/dL (3.5-5.0); Total Protein 3.5 g/dL (6.0-8.3)
[2017-01-26 02:20] LABS: Activated Partial Thrombo Time > 360.0 Seconds (26.0-36.0)
[2017-01-26 02:33] LABS: Heparin anti-factor XA UFH 0.58 IU/mL (0.30-0.70)
[2017-01-26] MEDS: Albumin 25% 25gram/100mL 25 GM/100 ML IV.SOLN IVPB SCH ×3 (02:42→18:13)
[2017-01-26] MEDS ORDERED: Furosemide 40 MG/4 ML VIAL IVP ONE (06:00)
[2017-01-26] MEDS ORDERED: Prenatal Vit/FA 1 EACH TABLET PO SCH (09:00)
[2017-01-26] MEDS ORDERED: Famotidine 20 MG/2 ML VIAL IVP ONE (09:24)
--- NOTE | 2017-01-26 09:27 | Internal Med Progress Note ---
<Isaac Alvarado - Last Filed: 01/26/17 16:07> Date of Encounter: 01/26/17 Time of Encounter: 09:27 - Assessment and plan (1) Acute pulmonary embolism Current Visit: Yes Status: Acute Assessment and plan: Patient presented with 3 days history of shortness of breath with sudden onset. CTA revealed acute predominantly right upper lobe pulmonary emboli D-dimer was 2272. Cause unknown at this time. Patient reports improvement in symptoms overnight. PT 18.4, INR 1.7, PTT 68.8 Continue heparin drip d2, consider transition to po anticoagulation tomorrow. US bilateral Lower extremities pending. Qualifiers: Pulmonary embolism type: other Acute cor pulmonale presence: without acute cor pulmonale Qualified Code(s): I26.99 - Other pulmonary embolism without acute cor pulmonale (2) Pneumonia Current Visit: Yes Status: Acute Assessment and plan: CTA demonstrates bilateral patchy pulmonary opacities that may represent pneumonia. WBC elevated at 16.1 on admission, decreased to 14.3 this morning. Continue Levaquin d2. Received one time dose of Rocephin and Zosyn in ED. Qualifiers: Pneumonia type: due to unspecified organism Laterality: unspecified laterality Lung location: unspecified part of lung Qualified Code(s): J18.9 - Pneumonia, unspecified organism (3) Anasarca Current Visit: Yes Status: Acute Assessment and plan: Diffuse anasarca likely secondary to severe protein malnutrition. Received Albumin x3. Repeat and monitor albumin level. (4) Nausea & vomiting Current Visit: Yes Status: Chronic Assessment and plan: Patient with a history of nausea and vomiting since February 2016. History of Cheyanne en Y gastric bypass in 2013. Contributing to malnutrition Recent cholecystectomy and recent endoscopies were without significant findings. Continue Phenergan prn Qualifiers: Vomiting type: unspecified Vomiting Intractability: unspecified Qualified Code(s): R11.2 - Nausea with vomiting, unspecified (5) Diarrhea Current Visit: Yes Status: Chronic Assessment and plan: Reports chronic diarrhea since February 2016, improvement with cholestyramine bid. Review of outpatient notes indicates, suspect due to pancreatic insufficiency. Pancreatic elastase, fecal ordered. Qualifiers: Diarrhea type: unspecified type Qualified Code(s): R19.7 - Diarrhea, unspecified (6) JENNA (acute kidney injury) Current Visit: Yes Status: Resolved Assessment and plan: Resolved. JENNA with previously normal renal function. Cr on admission was 1.29, 0.91 this morning. (7) Lactic acidosis Current Visit: Yes Status: Acute Assessment and plan: Lactic acid level 3. on admission, 2.5 this morning. Possibly secondary to poor malnutrition vs infectious etiology Continue to follow levels (8) Rash Current Visit: Yes Status: Acute Assessment and plan: Diffuse body rash that is erythematous eczematous. Dermatology as outpatient planned to do skin biopsy, but was transferred to hospital due to shortness of breath. Consider fungal vs vitamin deficiency etiology, vs less likely drug eruption rash. Consider skin punch biopsy and send to pathology. (9) Severe protein-calorie malnutrition Current Visit: Yes Status: Acute Assessment and plan: Albumin 1.5 with diffuse anasarca on admission. Albumin 1.2 this morning, Albumin orders not completed. Embedded Software Manager consulted, recommend high protein diet. Will continue to follow along. Increase caloric and protein in diet. Albumin q8h x3 was ordered. Continue to follow labs. (10) Hypokalemia Current Visit: Yes Status: Acute Assessment and plan: Potassium 2.8 on admission. Potassium level 3.2 this morning. Continue to follow and replete as necessary. (11) Hypomagnesemia Current Visit: Yes Status: Acute Assessment and plan: Magnesium level 1.0 upon admission. Magnesium level 1.3 this morning. May be secondary to malnutrition and recent chronic diarrhea. Continue to follow and replete as necessary. (12) Elevated INR Current Visit: Yes Status: Acute Assessment and plan: INR 1.4 on admission, 1.7 this morning. Likely secondary to malnutrition. May consider vitamin K administration if continues to increase. Continue to follow. (13) History of Cheyanne-en-Y gastric bypass Current Visit: Yes Status: Chronic (14) Sinus tachycardia Current Visit: Yes Status: Acute Assessment and plan: Patient has a history of sinus tachycardia diagnoses about one month prior and followed up with Cardiology who started metoprolol. Suspect tachycardia secondary to electrolyte imbalances and intravascular volume loss from hypoalbuminemia. Continue to monitor. May continue to hold beta yissel at this time. (15) DVT prophylaxis Current Visit: Yes Status: Acute Assessment and plan: On heparin drip for PE. - Subjective Interval history: Ms. Wong is a 51 year old female with history of chronic pedal edema, htn, chronic nausea/vomiting/diarrhea, obesity s/p Cheyanne en Y gastric bypass in 2003 who presents from the [facility] office for a 3 days history of worsening shortness of breath that started suddenly and caused weakness and lightheadedness particularly with position changes and ambulation. Patient denied chest pain. Patient reports nausea and vomiting that started about February 2016, lower extremity swelling since July 2016 that has spread to upper extremities and face, and rash that initially started on left arm and spread throughout her body. V/Q scan revealed acute PE of Right upper lobe without evidence of right heart strain. Patient reports she is feeling less short of breath than on admission and wants to know if she will be able to get her skin biopsy and additional testing for her other chronic problems completed during this visit. Patient currently denies fevers, chills, sweats, headaches, lightheadedness, chest pain, abdominal pain, changes in urination, weakness, or loss of sensation. - Constitutional Vitals: Temp Pulse Resp BP Pulse Ox 98.5 F 113 17 109/91 91 01/26/17 05:03 01/26/17 07:00 01/26/17 07:00 01/26/17 07:00 01/26/17 07:00 General appearance: Present: cooperative, A&O X 3, pleasant, no acute distress, obese, answers questions appropriately - Head Head exam: Present: atraumatic, normal inspection, normocephalic - Eye Eye exam: Present: EOMI, normal appearance, PERRL - ENT ENT exam: Present: mucous membranes moist, normal exam, normal external ear exam , normal oropharynx - Neck Neck exam general surgery: Present: full ROM, supple, trachea midline. Absent: tenderness - Respiratory Respiratory exam: Present: wheezes. Absent: rales, rhonchi - Cardiovascular Cardiovascular exam: Present: +S1, +S2, tachycardia. Absent: diastolic murmur, JVD, systolic murmur - GI/Abdominal GI/Abdominal exam: Present: normal bowel sounds, soft. Absent: distended, guarding, tenderness - Extremities Exam Extremities exam: Present: full ROM, pedal edema, warm, radial pulses palpable and symetrical. Absent: mottling, tenderness - Neurological Exam Neurological exam: Present: alert, normal gait, oriented X3, no focal deficits, strengths equal and symetr throughout. Absent: facial droop, speech deficit - Psychiatric Psychiatric exam: Present: normal affect, normal mood - Skin Skin exam: Present: dry, erythema, intact, rash (large patch extending from left elbow to back, abdomen, and upper thighs, erythematous, pruritic, no sloughing, no bleeding. Additional rash noted upper right knee pinkish, nonrased, urtiarial in nature, no drainage. Rash over upper right chest interspersed papular in nature and abrasions noted.), warm - Other Additional findings: Anasarca noted, face, upper extremities, and lower extremities bilaterally 2+ pitting. Internal Medicine: Result - Labs CBC & Chem 7: 01/26/17 01:28 01/26/17 01:28 Labs: Short CBC 01/26/17 Range/Units 01:28 WBC 14.3 H (4.3-11.1) K/mcL Hgb 10.4 L D (11.5-15.4) g/dL Hct 30.0 L (35.3-44.9) % Plt Count 363 (140-400) K/mcL Neutrophils # 12.1 H (1.6-8.9) K/mcL BMP 01/26/17 01:28 Sodium 131 L Potassium 3.2 L Chloride 100 Carbon Dioxide 19 BUN 16 Creatinine 0.91 Glucose 132 H Calcium 6.6 L Liver Function 01/26/17 Range/Units 01:28 Total Bilirubin 1.9 H (0.2-1.2) mg/dL AST 24 (5-34) Units/L ALT 46 (0-55) Units/L Alkaline Phosphatase 205 H (38-126) Units/L Albumin 1.2 L (3.5-5.0) g/dL Urine 01/25/17 Range/Units 23:00 Urine Color [place] A (Yellow) Urine Clarity Cloudy A (Clear) Urine pH 6.0 (5.0-8.0) pH Units Ur Specific [place] > 1.030 H (1.010-1.025) Urine Protein Negative (Neg-Trace) mg/dL Urine Glucose (UA) Normal (Normal) mg/dL - ABG Interpretation ABG results: PT/INR, D-dimer PT 18.4 Seconds (9.4-12.1) H 01/26/17 01:28 D-Dimer 2272 ng/mLFEU (0-500) H 01/25/17 12:35 Consult Discharge Plan - Plan Referrals: Jona Barrera MD [Primary Care Provider] - <Keith Luna P - Last Filed: 01/26/17 16:30> Date of Encounter: 01/26/17 - Constitutional Vitals: Temp Pulse Resp BP Pulse Ox 98.3 F 109 17 97/67 98 01/26/17 15:00 01/26/17 15:00 01/26/17 15:00 01/26/17 15:00 01/26/17 15:00 Internal Medicine: Result - Labs CBC & Chem 7: 01/26/17 01:28 01/26/17 01:28 Labs: Short CBC 01/26/17 Range/Units 01:28 WBC 14.3 H (4.3-11.1) K/mcL Hgb 10.4 L D (11.5-15.4) g/dL Hct 30.0 L (35.3-44.9) % Plt Count 363 (140-400) K/mcL Neutrophils # 12.1 H (1.6-8.9) K/mcL BMP 01/26/17 01:28 Sodium 131 L Potassium 3.2 L Chloride 100 Carbon Dioxide 19 BUN 16 Creatinine 0.91 Glucose 132 H Calcium 6.6 L Liver Function 01/26/17 Range/Units 01:28 Total Bilirubin 1.9 H (0.2-1.2) mg/dL AST 24 (5-34) Units/L ALT 46 (0-55) Units/L Alkaline Phosphatase 205 H (38-126) Units/L Albumin 1.2 L (3.5-5.0) g/dL Urine 01/25/17 Range/Units 23:00 Urine Color [place] A (Yellow) Urine Clarity Cloudy A (Clear) Urine pH 6.0 (5.0-8.0) pH Units Ur Specific [place] > 1.030 H (1.010-1.025) Urine Protein Negative (Neg-Trace) mg/dL Urine Glucose (UA) Normal (Normal) mg/dL - ABG Interpretation ABG results: PT/INR, D-dimer PT 18.4 Seconds (9.4-12.1) H 01/26/17 01:28 D-Dimer 2272 ng/mLFEU (0-500) H 01/25/17 12:35 - Attending Attestation I examined this patient and my medical decision-making was reviewed with the ASSOCIATE VICE PRESIDENT/PA/Advanced Practice Nurse/Resident Physician. I agree with the documented findings, disposition and treatment plan as described except to the extent set forth below.
[2017-01-26] MEDS: Ascorbic Acid 500 MG TABLET PO SCH (10:31)
[2017-01-26] MEDS: BuPROPion XL (24 HR) 150 MG TABLET PO SCH (10:31)
[2017-01-26] MEDS: Cholecalciferol (D-3) 1,000 UNIT TABLET PO SCH (10:32)
[2017-01-26] MEDS: Pantoprazole 40 MG VIAL IVP SCH (10:32)
[2017-01-26] MEDS: Multivit/Ca/Min/Fe/FA 1 TAB TABLET PO SCH (10:32)
[2017-01-26] MEDS: *HR* Promethazine 25 MG/ML VIAL IVP PRN (11:56)
[2017-01-26] MEDS ORDERED: *HR* Metoprolol 5 MG/5 ML VIAL IVP PRN (14:28)
[2017-01-26] MEDS: Heparin 25,000 UNIT/500 ML D5W 25,000 UNIT/500 ML MLS IVC SCH (14:52)
--- NOTE | 2017-01-26 15:43 | Electrocardiograph Report ---
[facility] Test Date: 2017-01-25 Pat Name: Julianna Wong Department: 103 Room: 2NE27 Gender: F [employer] App[employer] Tech: : [id number] Requested By: Moises Noriega Order Number: [id number] Reading MD: Thomas Handy MD Measurements Intervals Anselmo Rate: 115 P: 38 AR: 171 QRS: -11 QRSD: 91 T: 72 QT: 335 QTc: 403 Interpretive Statements SINUS TACHYCARDIA ANTERIOR MYOCARDIAL INFARCTION, PROBABLY OLD INFERIOR MYOCARDIAL INFARCTION, PROBABLY OLD Electronically Signed On 01-26-2017 15:41:55 EDT by Thomas Handy MD
[2017-01-26] MEDS ORDERED: Potassium Chloride 40 MEQ, Lidocaine 1% 2 ML in D5% in Water 500 ML IVPB ONE (15:56)
[2017-01-26] MEDS ORDERED: Magnesium Sulfate 2 GM in D5% in Water 100 ML IVPB ONE (15:56)
[2017-01-26] MEDS: Levofloxacin 750 MG/150 ML 750 MG/150 ML BAG IVPB SCH (18:12)
[2017-01-26 19:43] LABS: Protein/Creatinine Ratio,Urine 0.31 mg/mg (0-0.20)
[2017-01-26] MEDS ORDERED: *HR* HYDROmorphone (PF) 1 MG/ML SYRINGE IV SCH (20:04)
[2017-01-26 23:31] LABS: Hematocrit 24.3 % (35.3-44.9)
[2017-01-26 23:33] LABS: Hemoglobin 8.3 g/dL (11.5-15.4)
[2017-01-27] MEDS ORDERED: 0.9 % Sodium Chloride 250 ML ONE ×2 (01:37→05:47)
[2017-01-27] MEDS ORDERED: Calcium Gluconate 1,000 MG in D5% in Water 100 ML IVPB PRN (05:34)
--- NOTE | 2017-01-27 08:22 | Internal Med Progress Note ---
<Isaac Alvarado - Last Filed: 01/27/17 13:52> Date of Encounter: 01/27/17 Time of Encounter: 08:20 - Assessment and plan (1) Acute pulmonary embolism Current Visit: Yes Status: Acute Assessment and plan: Patient presented with 3 days history of shortness of breath with sudden onset. CTA revealed acute predominantly right upper lobe pulmonary emboli D-dimer was 2272. Cause likely secondary to multiple bilateral lower extremity dvt likely due to patient's lessened physical mobility. Ultrasound bilateral lower extremities: preliminary report is positive. Chronic DVT in superficial femoral, popliteal, posttibial, and peroneal on Right. Common femoral, superficial femoral, popliteal, post tibial, and peroneal dvt on Left. Patient reports improvement in symptoms overnight. PT 17.7, INR 1.6, PTT 44.2 Heparin drip held due to blood loss anemia, possibly gi. Continue with supplemental oxygen. Satting well on 2L nasal cannula. Vitals stable GI consult placed. Qualifiers: Pulmonary embolism type: other Acute cor pulmonale presence: without acute cor pulmonale Qualified Code(s): I26.99 - Other pulmonary embolism without acute cor pulmonale (2) Pneumonia Current Visit: Yes Status: Acute Assessment and plan: CTA demonstrates bilateral patchy pulmonary opacities that may represent pneumonia. WBC elevated at 16.1 on admission, continues decreasing to 13.4 this morning. Continue Levaquin d3. Received one time dose of Rocephin and Zosyn in ED. Qualifiers: Pneumonia type: due to unspecified organism Laterality: unspecified laterality Lung location: unspecified part of lung Qualified Code(s): J18.9 - Pneumonia, unspecified organism (3) DVT (deep venous thrombosis) Current Visit: Yes Status: Acute Assessment and plan: Ultrasound bilateral lower extremities: preliminary report is positive. Chronic DVT in superficial femoral, popliteal, posttibial, and peroneal on Right. Common femoral, superficial femoral, popliteal, post tibial, and peroneal dvt on Left. Qualifiers: DVT location: lower extremity Laterality: bilateral Chronicity: unspecified Qualified Code(s): I82.403 - Acute embolism and thrombosis of unspecified deep veins of lower extremity, bilateral (4) Anemia Current Visit: Yes Status: Acute Assessment and plan: Acute blood loss anemia, unspecified. May be related to blood loss as noted by saturated dressing around PICC vs possible gi bleed being evaluated vs some dilutional effect. Hb drop of 12.5 form admission, 10.4, then 8.3. CT abdomen/pelvis revealed no evidence of intra-abdominal hemorrhage, significant interval worsening of bilateral pneumonia, third spacing of fluid as evidenced by mild abdominal ascites and anasarca which is improved, severe hepatic steatosis. 2 Units pRBC transfused, Hb 12.1 following Continue to monitor labs Fecal hemoccult ordered GI consulted for possible endoscopy evaluation. Qualifiers: Anemia type: other cause Other causes of anemia: other cause, not classified Qualified Code(s): D64.89 - Other specified anemias (5) Anasarca Current Visit: Yes Status: Acute Assessment and plan: Diffuse anasarca likely secondary to severe protein malnutrition. Albumin 1.5 on arrival, Prealbumin 4.0 this morning. Decreased facial and upper extremity swelling noted on exam this morning. Repeat and monitor albumin level. Albumin q8h x3 ordered. Lasix 40mg once ordered. (6) Nausea & vomiting Current Visit: Yes Status: Chronic Assessment and plan: Patient with a history of nausea and vomiting since February 2016. History of Cheyanne en Y gastric bypass in 2013. Contributing to malnutrition Recent cholecystectomy and recent endoscopies were without significant findings. Discontinue phenergan, Start zofran prn and scopolamine patch. Qualifiers: Vomiting type: unspecified Vomiting Intractability: unspecified Qualified Code(s): R11.2 - Nausea with vomiting, unspecified (7) Diarrhea Current Visit: Yes Status: Chronic Assessment and plan: Reports chronic diarrhea since February 2016, improvement with cholestyramine bid. Review of outpatient notes indicates, suspect due to pancreatic insufficiency. Pancreatic elastase, fecal ordered. Qualifiers: Diarrhea type: unspecified type Qualified Code(s): R19.7 - Diarrhea, unspecified (8) JENNA (acute kidney injury) Current Visit: Yes Status: Resolved Assessment and plan: Resolved. JENNA with previously normal renal function. Cr on admission was 1.29, 0.68 this morning. (9) Lactic acidosis Current Visit: Yes Status: Acute Assessment and plan: Lactic acid level 3. on admission, 2.5 yesterday. Possibly secondary to poor malnutrition vs infectious etiology Continue to follow levels (10) Rash Current Visit: Yes Status: Acute Assessment and plan: Diffuse body rash that is erythematous eczematous. Dermatology as outpatient planned to do skin biopsy, but was transferred to hospital due to shortness of breath. Consider fungal vs vitamin deficiency etiology, vs less likely drug eruption rash. Consider skin punch biopsy and send to pathology. Wound culture x2 ordered. Selenium and Zinc ordered, per nutrition recommendations. (11) Severe protein-calorie malnutrition Current Visit: Yes Status: Acute Assessment and plan: Albumin 1.5 with diffuse anasarca on admission. Albumin 1.2 yesterday. Radiocommunications Technician consulted, recommend high protein diet. Will continue to follow along. Increase caloric and protein in diet. Continue to follow labs. (12) Hypokalemia Current Visit: Yes Status: Acute Assessment and plan: Resolved. Potassium 2.8 on admission. Potassium level 3.5 this morning. Continue to follow and replete as necessary. (13) Hypomagnesemia Current Visit: Yes Status: Acute Assessment and plan: Magnesium level 1.0 upon admission. Magnesium level 1.3 yesterday. May be secondary to malnutrition and recent chronic diarrhea. Continue to follow and replete as necessary. (14) Elevated INR Current Visit: Yes Status: Acute Assessment and plan: INR 1.4 on admission, 1.6 this morning. Likely secondary to malnutrition. May consider vitamin K administration if continues to increase. Continue to follow. (15) History of Cheyanne-en-Y gastric bypass Current Visit: Yes Status: Chronic (16) Sinus tachycardia Current Visit: Yes Status: Acute Assessment and plan: Patient has a history of sinus tachycardia diagnoses about one month prior and followed up with Cardiology who started metoprolol. Suspect tachycardia secondary to electrolyte imbalances and intravascular volume loss from hypoalbuminemia. Continue to monitor. May continue to hold beta yissel at this time. (17) Altered mental status Current Visit: Yes Status: Resolved Assessment and plan: Resolved. Episode of altered mental status last evening. Patient unaware of any issue overnight with her mental status and is Alert and oriented to person and place this morning. Alert and Oriented x3 on reexamination. Hb was determined to be 8.3, drop from 10.4 earlier same day. poc glucose was normal. CT abdomen/pelvis revealed no evidence of intra-abdominal hemorrhage, significant interval worsening of bilateral pneumonia, third spacing of fluid as evidenced by mild abdominal ascites and anasarca which is improved, severe hepatic steatosis. Suspect concomittant use of phenergan and benadryl causing increased drowsiness in addition to acute blood loss anemia. Qualifiers: Altered mental status type: unspecified Qualified Code(s): R41.82 - Altered mental status, unspecified (18) DVT prophylaxis Current Visit: Yes Status: Acute Assessment and plan: Heparin drip dc due to possible bleed. Not a candidate for additional ppx at this time. - Subjective Interval history: Patient reports that she is feeling better than yesterday, but history of overnight events inconsistent with report from nurses and overnight resident. Patient had acute mental status change overnight and was less responsive as well as significant saturated dressing around PICC. Labs revealed a significant Hb drop from 10.4 earlier in the morning to 8.3 later in the evening. Patient was given 2 Units pRBC, fecal occult ordered, PICC line site examined, heparin drip stopped, CT abd/pelvis ordered, GI consulted. Patient is otherwise comfortable in bed at the time of my exam and conversing normally as she did yesterday though only alert and oriented x2 (place and person). Patient reports occasional chills overnight, continued weeping from skin rash, and mild shortness of breath improving. Patient denies fevers, sweats, nausea, vomiting, chest pain, abdominal pain, changes in urination or bowels, weakness, or loss of sensation. - Constitutional Vitals: Temp Pulse Resp BP Pulse Ox 97.7 F 109 14 112/74 95 01/27/17 06:00 01/27/17 06:00 01/27/17 06:00 01/27/17 06:00 01/27/17 05:52 General appearance: Present: cooperative, A&O X 3, pleasant, no acute distress, obese, answers questions appropriately - Head Head exam: Present: atraumatic, normal inspection, normocephalic - Eye Eye exam: Present: EOMI, normal appearance - ENT ENT exam: Present: mucous membranes moist, normal exam, normal external ear exam , normal oropharynx - Neck Neck exam general surgery: Present: full ROM, normal inspection, supple, trachea midline. Absent: tenderness - Respiratory Respiratory exam: Present: wheezes. Absent: rales, rhonchi - Cardiovascular Cardiovascular exam: Present: +S1, +S2, tachycardia. Absent: diastolic murmur, JVD, systolic murmur - GI/Abdominal GI/Abdominal exam: Present: normal bowel sounds, soft. Absent: distended, guarding, tenderness - Extremities Exam Extremities exam: Present: full ROM, pedal edema, warm, radial pulses palpable and symetrical. Absent: calf tenderness, tenderness - Neurological Exam Neurological exam: Present: alert, oriented X3, no focal deficits, strengths equal and symetr throughout. Absent: facial droop, speech deficit - Psychiatric Psychiatric exam: Present: normal affect, normal mood - Skin Skin exam: Present: dry, erythema, intact, rash (arge patch extending from left elbow to back, abdomen, and upper thighs, erythematous, pruritic, no sloughing, no bleeding. Additional rash noted upper right knee pinkish, nonrased, urtiarial in nature, no drainage. Rash over upper right chest interspersed papular in nature and abrasions noted.), warm. Absent: pallor Internal Medicine: Result - Labs CBC & Chem 7: 01/27/17 10:25 01/27/17 10:25 Labs: Short CBC 01/26/17 Range/Units 23:20 Hgb 8.3 L D (11.5-15.4) g/dL Hct 24.3 L (35.3-44.9) % - ABG Interpretation ABG results: PT/INR, D-dimer PT 18.4 Seconds (9.4-12.1) H 01/26/17 01:28 D-Dimer 2272 ng/mLFEU (0-500) H 01/25/17 12:35 Consult Discharge Plan - Plan Instructions: Chest Pain (DC), Pulmonary Embolism (DC), Anemia (GEN), Pneumonia (DC) Referrals: [facility] [Provider Group] - 02/08/17 9:20 am Jona Barrera MD [Primary Care Provider] - 02/03/17 3:20 pm <Keith uLna P - Last Filed: 01/27/17 17:06> Date of Encounter: 01/27/17 - Constitutional Vitals: Temp Pulse Resp BP Pulse Ox 97.7 F 127 16 104/83 98 01/27/17 15:00 01/27/17 15:00 01/27/17 15:00 01/27/17 15:00 01/27/17 15:00 Internal Medicine: Result - Labs CBC & Chem 7: 01/27/17 10:25 01/27/17 10:25 Labs: Short CBC 01/26/17 01/27/17 Range/Units 23:20 10:25 WBC 13.4 H (4.3-11.1) K/mcL Hgb 8.3 L D 12.1 D (11.5-15.4) g/dL Hct 24.3 L 34.3 L (35.3-44.9) % Plt Count 260 (140-400) K/mcL Neutrophils # 11.4 H (1.6-8.9) K/mcL BMP 01/27/17 10:25 Sodium 133 L Potassium 3.5 Chloride 99 Carbon Dioxide 21 BUN 7 Creatinine 0.68 Glucose 97 Calcium 7.5 L Liver Function 01/27/17 Range/Units 10:25 Total Bilirubin 3.4 H D (0.2-1.2) mg/dL AST 26 (5-34) Units/L ALT 34 (0-55) Units/L Alkaline Phosphatase 156 H (38-126) Units/L Albumin 2.5 L D (3.5-5.0) g/dL - ABG Interpretation ABG results: PT/INR, D-dimer PT 17.7 Seconds (9.4-12.1) H 01/27/17 10:25 D-Dimer 2272 ng/mLFEU (0-500) H 01/25/17 12:35 - Impressions Impressions Abdomen/Pelvis CT 01/27/17 08:22 IMPRESSION: 1. No evidence of intra-abdominal hemorrhage. 2. Significant interval worsening of bilateral pneumonia. Peripheral based opacities in the right lung may represent additional areas of infection versus infarction given recent history of pulmonary emboli. 3. Third-spacing of fluid as evidenced by mild abdominal ascites and anasarca. The ascites appears improved since 01/25/2017. 4. Severe hepatic steatosis. 5. Status post cholecystectomy and gastric bypass. D/ / 01/27/2017 09:21:28 July Gruber MD / sam Interpreting Provider: July Gruber MD - Attending Attestation I examined this patient and my medical decision-making was reviewed with the INSURANCE CLAIMS ADJUSTER/PA/Advanced Practice Nurse/Resident Physician. I agree with the documented findings, disposition and treatment plan as described except to the extent set forth below. awaiting GI evaluation
[2017-01-27 10:42] LABS: Basophils % 0.2 %; Eosinophils # 0.1 K/mcL (0.0-0.6); Eosinophils % 0.7 %; Hematocrit 34.3 % (35.3-44.9); Immature Granulocytes % 0.5 % (0-4); Lymphocytes # 1.2 K/mcL (0.6-4.6); Lymphocytes % 9.1 %; Mean Corpuscular HGB Conc 35.3 g/dL (31.6-35.5); Mean Corpuscular Hemoglobin 32.2 pg (28.0-33.3); Mean Corpuscular Volume 91.2 fL (83.0-100.0); Mean Platelet Volume 10.2 fL (9.4-12.4); Monocytes # 0.5 K/mcL (0.0-1.3); Neutrophils # 11.4 K/mcL (1.6-8.9); Platelet Count 260 K/mcL (140-400); Red Blood Count 3.76 M/mcL (3.82-4.97); Segmented Neutrophils % 85.5 %
[2017-01-27 10:44] LABS: Hemoglobin 12.1 g/dL (11.5-15.4)
[2017-01-27 10:45] LABS: INR 1.6; Prothrombin Time 17.7 Seconds (9.4-12.1)
[2017-01-27 10:48] LABS: Activated Partial Thrombo Time 44.2 Seconds (26.0-36.0)
[2017-01-27 11:11] LABS: Alanine Aminotransferase 34 Units/L (0-55); Albumin/Globulin Ratio 1.5 (1.1-2.2); Alkaline Phosphatase 156 Units/L (38-126); Aspartate Amino Transferase 26 Units/L (5-34); BUN/Creatinine Ratio 10 (6-26); Blood Urea Nitrogen 7 mg/dL (7-20); Calcium 7.5 mg/dL (8.6-10.8); Carbon Dioxide 21 mEq/L (19-29); Chloride 99 mEq/L (98-109); Globulin 1.7 g/dL (2.4-3.5); Glucose 97 mg/dL (70-99); Osmolality,Calculated 274 (280-300); Potassium 3.5 mEq/L (3.5-4.5); Sodium 133 mEq/L (136-145); Total Protein 4.2 g/dL (6.0-8.3); eGFR For African Americans > 60 (> 60); eGFR For Non-African Americans > 60 (> 60)
[2017-01-27 11:13] LABS: Albumin 2.5 g/dL (3.5-5.0); Bilirubin,Total 3.4 mg/dL (0.2-1.2)
[2017-01-27] MEDS ORDERED: Scopolamine Patch 1.5 MG PATCH.TD72 TD SCH (11:15)
[2017-01-27] MEDS: Pantoprazole 40 MG VIAL IVP SCH (11:33)
[2017-01-27] MEDS: Ondansetron 4 MG/2 ML VIAL IVP PRN ×2 (11:33→20:23)
[2017-01-27] MEDS: Heparin 25,000 UNIT/500 ML D5W 25,000 UNIT/500 ML MLS IVC SCH (11:48)
[2017-01-27] MEDS ORDERED: Furosemide 40 MG/4 ML VIAL IVP ONE (12:00)
[2017-01-27 12:09] LABS: Magnesium 1.9 mg/dL (1.6-2.6)
[2017-01-27] MEDS: BuPROPion XL (24 HR) 150 MG TABLET PO SCH (12:37)
[2017-01-27] MEDS: Multivit/Ca/Min/Fe/FA 1 TAB TABLET PO SCH (12:37)
[2017-01-27] MEDS: Ascorbic Acid 500 MG TABLET PO SCH (12:37)
[2017-01-27] MEDS: Nystatin POWDER 30 GM BOTTLE TP SCH ×2 (12:38→20:29)
[2017-01-27] MEDS: Nystatin OINT 15 GM TUBE TP SCH ×4 (12:38→20:29)
[2017-01-27] MEDS: Cholecalciferol (D-3) 1,000 UNIT TABLET PO SCH (12:38)
--- NOTE | 2017-01-27 14:52 | Venous Imaging Report ---
LE Venous Duplex Patient Name:Julianna Wong Order Number:[id number] Procedure Date:01/26/2017 Date:1965Age:51 yrs Gender:Female Location:[facility] Room #: 2NE27 Singing Waiter Or Waitress:Guerline Hart RDCS Referring MD:Rancho Rice DO social worker masters:Jona Barrera MD Reading MD:Pravin Whatley MD , FACS Primary Indications:Suspect DVT Secondary Indications: Impressions: Lower extremity abnormal deep exam: right superficial femoral vein, popliteal vein, posterior tibial vein, and peroneal vein demonstrates chronic thrombosis. Lower extremity abnormal deep exam: left distal iliac vein, common femoral vein, superficial femoral vein, popliteal vein, posterior tibial vein, and peroneal vein demonstrates chronic thrombosis. Recommendations: Test completed on 01/26/2017 at 5:01:00 pm. Critical findings reported to Pt Radha HANSEN in person at 5:05:00 pm on 01/26/2017 by Guerline Hart RDCS. Findings Venous Duplex Results: Right: Venous imaging of the lower extremity reveals full patency and normal vessel compressibility of the right distal iliac, right common femoral, right great saphenous and right lesser saphenous. Doppler signals in the evaluated veins were normal. There is a chronic occlusive thrombus seen in the right mid superficial femoral. It demonstrates an incompressible vein. Flow was continuous and it did not augment. There is a chronic partially occlusive thrombus seen in the right popliteal. It demonstrates a partially compressible vein. Flow was continuous and it did augment. There is a chronic occlusive thrombus seen in the right posterior tibial. It demonstrates an incompressible vein. Flow was continuous and it did not augment. There is a chronic occlusive thrombus seen in the right peroneal. It demonstrates an incompressible vein. Flow was continuous and it did not augment. Left: Venous imaging of the lower extremity reveals full patency and normal vessel compressibility of the left great saphenous and left lesser saphenous. Doppler signals in the evaluated veins were normal. There is a partially occlusive thrombus seen in the left distal iliac. It demonstrates a partially compressible vein. Flow was phasic and it did augment. There is a partially occlusive thrombus seen in the left common femoral. It demonstrates a partially compressible vein. Flow was continuous and it did not augment. There is a chronic occlusive thrombus seen in the left superficial femoral. It demonstrates an incompressible vein. Flow was continuous and it did not augment. There is a chronic occlusive thrombus seen in the left popliteal. It demonstrates a partially compressible vein. Flow was continuous and it did not augment. There is an occlusive thrombus seen in the left posterior tibial. It demonstrates an incompressible vein. Flow was continuous and it did not augment. There is an occlusive thrombus seen in the left peroneal. It demonstrates an incompressible vein. Flow was continuous and it did not augment. Prior Study: No prior study available for comparison. Lower Extremity Venous Duplex Side Vein Compress Spontaneous Flow Augment Diameter (cm) Depth (cm) Right Distal Iliac Normal yes Phasic yes Right Common Femoral Normal yes Phasic yes Right Superficial Femoral None no Continuous no Right Popliteal Partial no Continuous yes Right Posterior Tibial None no Continuous no Right Peroneal None no Continuous no Right Great Saphenous Normal yes Phasic yes Right Lesser Saphenous Normal yes Phasic yes Left Distal Iliac Partial no Phasic yes Left Common Femoral Partial no Continuous no Left Superficial Femoral None no Continuous no Left Popliteal Partial no Continuous no Left Posterior Tibial None no Continuous no Left Peroneal None no Continuous no Left Great Saphenous Normal yes Phasic yes Left Lesser Saphenous Normal yes Phasic yes Updated by Pravin Whatley MD, FACS on 01/27/2017 2:47:42 PM Pravin Whatley MD electronically signed on 01/27/2017 2:48:55 PM with status of Final
[2017-01-27] MEDS ORDERED: Albumin 25% 25gram/100mL 25 GM/100 ML IV.SOLN IVPB SCH (16:00)
[2017-01-27] MEDS: Levofloxacin 750 MG/150 ML 750 MG/150 ML BAG IVPB SCH (18:25)
[2017-01-27] MEDS: *HR* HYDROmorphone (PF) 1 MG/ML SYRINGE IV PRN (20:24)
[2017-01-28] MEDS: Albumin 25% 25gram/100mL 25 GM/100 ML IV.SOLN IVPB SCH ×2 (00:11→08:34)
[2017-01-28 04:17] LABS: Hematocrit 30.6 % (35.3-44.9); Mean Platelet Volume 10.2 fL (9.4-12.4)
[2017-01-28 04:23] LABS: Basophils % 0.4 %; Eosinophils # 0.2 K/mcL (0.0-0.6); Eosinophils % 2.1 %; Hemoglobin 10.5 g/dL (11.5-15.4); Immature Granulocytes % 0.5 % (0-4); Lymphocytes # 1.4 K/mcL (0.6-4.6); Mean Corpuscular HGB Conc 34.3 g/dL (31.6-35.5); Mean Corpuscular Hemoglobin 31.2 pg (28.0-33.3); Mean Corpuscular Volume 90.8 fL (83.0-100.0); Monocytes # 0.4 K/mcL (0.0-1.3); Monocytes % 4.3 %; Neutrophils # 7.3 K/mcL (1.6-8.9); Platelet Count 215 K/mcL (140-400); Red Blood Count 3.37 M/mcL (3.82-4.97); Red Cell Distribution Width 16.8 % (11.5-14.5); Segmented Neutrophils % 77.7 %
[2017-01-28 04:24] LABS: INR 1.9; Prothrombin Time 20.9 Seconds (9.4-12.1)
[2017-01-28 04:27] LABS: Activated Partial Thrombo Time 52.9 Seconds (26.0-36.0)
[2017-01-28 04:29] LABS: BUN/Creatinine Ratio 7 (6-26); Calcium 7.8 mg/dL (8.6-10.8); Carbon Dioxide 24 mEq/L (19-29); Chloride 106 mEq/L (98-109); Glucose 62 mg/dL (70-99); Magnesium 1.7 mg/dL (1.6-2.6); Osmolality,Calculated 283 (280-300); Potassium 3.2 mEq/L (3.5-4.5); Sodium 139 mEq/L (136-145); eGFR For African Americans > 60 (> 60); eGFR For Non-African Americans > 60 (> 60)
[2017-01-28 04:35] LABS: Blood Urea Nitrogen 4 mg/dL (7-20)
[2017-01-28] MEDS: BuPROPion XL (24 HR) 150 MG TABLET PO SCH (08:33)
[2017-01-28] MEDS: Pantoprazole 40 MG VIAL IVP SCH (08:33)
[2017-01-28] MEDS: Multivit/Ca/Min/Fe/FA 1 TAB TABLET PO SCH (08:34)
[2017-01-28] MEDS: Ascorbic Acid 500 MG TABLET PO SCH (08:34)
[2017-01-28] MEDS: *HR* HYDROmorphone (PF) 1 MG/ML SYRINGE IV PRN ×2 (08:34→16:18)
[2017-01-28] MEDS: Cholecalciferol (D-3) 1,000 UNIT TABLET PO SCH (08:34)
[2017-01-28] MEDS: Nystatin OINT 15 GM TUBE TP SCH ×3 (11:07→16:19)
[2017-01-28] MEDS: Nystatin POWDER 30 GM BOTTLE TP SCH (11:07)
--- NOTE | 2017-01-28 15:47 | Internal Med Progress Note ---
Date of Encounter: 01/28/17 Time of Encounter: 15:44 - Assessment and plan (1) Acute pulmonary embolism Current Visit: Yes Status: Acute Assessment and plan: Patient presented with 3 days history of shortness of breath with sudden onset. CTA revealed acute predominantly right upper lobe pulmonary emboli D-dimer was 2272. Cause likely secondary to multiple bilateral lower extremity dvt likely due to patient's lessened physical mobility. Ultrasound bilateral lower extremities: preliminary report is positive. Chronic DVT in superficial femoral, popliteal, posttibial, and peroneal on Right. Common femoral, superficial femoral, popliteal, post tibial, and peroneal dvt on Left. Patient reports improvement in symptoms overnight. PT 17.7, INR 1.6, PTT 44.2 Heparin drip held due to blood loss anemia, possibly gi. Continue with supplemental oxygen. Satting well on 2L nasal cannula. Vitals stable GI consult placed. Qualifiers: Pulmonary embolism type: other Acute cor pulmonale presence: without acute cor pulmonale Qualified Code(s): I26.99 - Other pulmonary embolism without acute cor pulmonale - Subjective Interval history: Seen and examined. Chart reviewed. Patient is tachycardic. She is able to speak complete sentences. She denies any chest pain, shortness of breath, dizziness or diarrhea. - Constitutional Vitals: Temp Pulse Resp BP Pulse Ox 98.3 F 121 18 129/86 96 01/28/17 11:52 01/28/17 11:52 01/28/17 11:52 01/28/17 11:52 01/28/17 11:52 General appearance: Present: cooperative, A&O X 3, pleasant, no acute distress, obese, answers questions appropriately - Head Head exam: Present: atraumatic, normocephalic - Eye Eye exam: Present: PERRL, conjuntiva pink, sclera anicteric Pupils: Present: PERRL - Neck Neck exam general surgery: Present: supple, trachea midline. Absent: lymphadenopathy - Respiratory Respiratory exam: Present: CTAB. Absent: accessory muscle use, rales, rhonchi, wheezes - Cardiovascular Cardiovascular exam: Present: RRR, +S1, +S2. Absent: diastolic murmur, gallop, rubs, systolic murmur - GI/Abdominal GI/Abdominal exam: Present: normal bowel sounds, soft, no peritoneal signs. Absent: distended, tenderness - Extremities Exam Extremities exam: Present: warm, radial pulses palpable and symetrical. Absent : calf tenderness, cyanotic, pedal edema - Neurological Exam Neurological exam: Present: CN II-XII intact, oriented X3, no focal deficits. Absent: pronater drift, facial droop, speech deficit - Skin Skin exam: Present: dry, intact Internal Medicine: Result - Labs CBC & Chem 7: 01/28/17 04:05 01/28/17 04:05 Labs: Short CBC 01/28/17 Range/Units 04:05 WBC 9.4 (4.3-11.1) K/mcL Hgb 10.5 L D (11.5-15.4) g/dL Hct 30.6 L (35.3-44.9) % Plt Count 215 (140-400) K/mcL Neutrophils # 7.3 (1.6-8.9) K/mcL BMP 01/28/17 04:05 Sodium 139 Potassium 3.2 L Chloride 106 Carbon Dioxide 24 BUN 4 L Creatinine 0.58 Glucose 62 L Calcium 7.8 L - ABG Interpretation ABG results: PT/INR, D-dimer PT 20.9 Seconds (9.4-12.1) H 01/28/17 04:05 D-Dimer 2272 ng/mLFEU (0-500) H 01/25/17 12:35 - Impressions Impressions Abdomen/Pelvis CT 01/27/17 08:22 IMPRESSION: 1. No evidence of intra-abdominal hemorrhage. 2. Significant interval worsening of bilateral pneumonia. Peripheral based opacities in the right lung may represent additional areas of infection versus infarction given recent history of pulmonary emboli. 3. Third-spacing of fluid as evidenced by mild abdominal ascites and anasarca. The ascites appears improved since 01/25/2017. 4. Severe hepatic steatosis. 5. Status post cholecystectomy and gastric bypass. D/ / 01/27/2017 09:21:28 July Gruber MD / sam Interpreting Provider: July Gruber MD Consult Discharge Plan - Plan Instructions: Chest Pain (DC), Pulmonary Embolism (DC), Anemia (GEN), Pneumonia (DC) Referrals: [facility] [Provider Group] - 02/08/17 9:20 am Jona Barrera MD [Primary Care Provider] - 02/03/17 3:20 pm
[2017-01-28] MEDS: Levofloxacin 750 MG/150 ML 750 MG/150 ML BAG IVPB SCH (16:18)
[2017-01-28 17:44] LABS: Basophils % 0.3 %; Eosinophils # 0.1 K/mcL (0.0-0.6); Eosinophils % 1.2 %; Hematocrit 31.9 % (35.3-44.9); Hemoglobin 10.9 g/dL (11.5-15.4); Immature Granulocytes % 0.5 % (0-4); Immature Platelets 5.4 % (1.1-6.1); Lymphocytes # 1.3 K/mcL (0.6-4.6); Lymphocytes % 12.3 %; Mean Corpuscular HGB Conc 34.2 g/dL (31.6-35.5); Mean Corpuscular Hemoglobin 31.6 pg (28.0-33.3); Mean Platelet Volume 10.3 fL (9.4-12.4); Monocytes # 0.4 K/mcL (0.0-1.3); Monocytes % 4.2 %; Neutrophils # 8.3 K/mcL (1.6-8.9); Nucleated Red Blood Cells 0.6 /100 WBC (0); Platelet Count 221 K/mcL (140-400); Red Blood Count 3.45 M/mcL (3.82-4.97); Segmented Neutrophils % 81.5 %
[2017-01-28 17:52] LABS: Mean Corpuscular Volume 92.5 fL (83.0-100.0)
--- NOTE | 2017-01-28 18:22 | Discharge Summary ---
Date of Encounter: 01/28/17 Time of Encounter: 18:18 - Discharge Diagnosis (1) Acute blood loss anemia Priority: Primary Status: Acute (2) Acute pulmonary embolism Priority: Primary Status: Acute Qualifiers: Pulmonary embolism type: other Acute cor pulmonale presence: without acute cor pulmonale Qualified Code(s): I26.99 - Other pulmonary embolism without acute cor pulmonale (3) Pneumonia Priority: Primary Status: Acute Qualifiers: Pneumonia type: due to unspecified organism Laterality: unspecified laterality Lung location: unspecified part of lung Qualified Code(s): J18.9 - Pneumonia, unspecified organism (4) Anasarca Priority: Secondary Status: Acute (5) Unintentional weight loss Priority: Secondary Status: Acute (6) Tobacco use Priority: Secondary Status: Chronic - Discharge Medications Home Medications: Acetaminophen [Tylenol] 500 mg PO Q6HR PRN 12/07/16 [History] Acyclovir [Zovirax] 400 mg PO BID 12/07/16 [History] Amitriptyline [Elavil] 20 mg PO HS 12/07/16 [History] Ascorbate Calcium [Vitamin C] 1,000 mg PO DAILY 12/07/16 [History] Bupropion HCl [Wellbutrin Xl] 300 mg PO QAM 12/07/16 [History] Cetirizine HCl [Zyrtec] 10 mg PO DAILY PRN 12/07/16 [History] Cholecalciferol (D-3) [Vitamin D] 1,000 unit PO DAILY 12/07/16 [History] Dicyclomine [Bentyl] 20 mg PO QID PRN 12/07/16 [History] Ferrous Sulfate 325 mg PO DAILY 12/07/16 [History] Fluticasone Propionate Nasal [Flonase] 50 mcg NS DAILY 12/07/16 [History] Furosemide [Lasix] 40 mg PO DAILY PRN 12/07/16 [History] L. Acidophilus/Pectin, Wallace [Acidophilus Probiotic Capsule] 1 each PO DAILY [History] Meloxicam [Mobic] 7.5 - 15 mg PO DAILY 12/07/16 [History] Multivitamin [Multi-Day Vitamins] 1 each PO DAILY 12/07/16 [History] Mv,Iron,Min/Folic Acid/Biotin [Hair, Skin and Nails Softgel] 66.7 mcg PO DAILY 12/07/16 [History] Nitroglycerin [Nitrostat] 0.4 mg SL Q5M PRN 12/07/16 [History] Metoprolol [Lopressor] 25 mg PO BID PRN 01/25/17 [History] Potassium Chloride [Klor-Con] 20 meq PO DAILY 01/25/17 [History] Allergies/Adverse Reactions: Allergies Bee Pollen Allergy (Verified 12/07/16 13:25) Swelling of Lip/Tongue/Throat tree nut Allergy (Verified 12/07/16 13:25) Swelling of Lip/Tongue/Throat adhesive Adverse Reaction (Verified 01/25/17 15:26) Rash Procedures/tests Complete & Pending: Procedures Performed prior 72 hours Category Date Time Status CT abd pelvis w iv no oral [CT] Stat Cat Scan 01/27/17 08:22 Completed EV venous imaging LE BI Routine Y 01/26/17 17:45 Completed Date of admission: 01/25/17 16:53 Primary care physician: Jona Barrera MD Consults: 01/25/17 17:12 Consult to Physical Therapy [CONS] Routine Comment: Evaluate, develop and implement POC consult to optical laboratory mechanic [Consult to Nutrition] [CONS] Routine Comment: severe protein malnurished Consulting Provider: NUTRITION Reason for Dietary Consult: PO Supplementation 01/26/17 10:05 Consult to Invasive Line Access Team [CONS] Routine Reason for Consult: Picc Line Insertion Line Type: PICC 01/26/17 11:40 Consult to Stewardesses Teacher [CONS] Routine Reason for SW Consult: Self pay; Medicaid application. 01/27/17 08:52 Consult to Gastroenterology [CONS] Routine Consulting Provider: [facility] Reason for Consult: Patient admitted for pulmonary emboli and multiple other acute on chronic problems. Patient Hb dropped >4 points since admission, had episode of altered mental status last evening, started transfusion 2 Units pRBC, stopped heparin drip, fecal occult, CT ordered. Eval for possible gi bleed Time Notified: 08:54 Call Completed: Yes Discharging clinician: Keith Luna - Patient Status Disposition: Transfer Other Condition: Critical Functional capacity at discharge: bed bound Overall status at discharge: patient is not back to baseline - Discharge Instructions Instructions: Chest Pain (DC), Pulmonary Embolism (DC), Anemia (GEN), Pneumonia (DC) Follow Up With: [facility] [Provider Group] - 02/08/17 9:20 am Jona Barrera MD [Primary Care Provider] - 02/03/17 3:20 pm - Diet and Activity Activity: as per the cardiac rehab Diet: other Interval History: Ms. Wong is a 51 year old female with medical history significant for chronic pedal edema, anxiety, depression, HTN, herpes virus, chronic N/V/D, obesity s/p [place]-En-Y gastric bypass in 2003 was sent from her dermatologists office for shortness of breath. She says that her shortness of breath started 3 days ago in the morning when she was home. She says the shortness of breath came on suddenly and never really improved. She has also felt weak and has had difficulty with ambulating and walking. She has also had light headedness with ambulation or change in position. She describes all of her symptoms as begining around February of 2016 with frequent nausea and vomiting exacerbated by PO intake. She vomits at least once per day and occasionally more. Her vomit has usually been food she eats and occasional water with bile. This has continued to her current admission. She has followed up with her PCP regularly regarding her medical concerns. In July of 2016 she started having swelling in her LE that has gradually worsened over time and then included her bilateral upper extremities, face and now abdomen. She has also felt more uncoordinated in her gait since July too. She was told she is malnourished but says she has trouble with keeping caloric intake down due to the vomiting. She says she is not trying to avoid food and actually loves food but the vomiting has hindered her ability to eat. She denies any history of having low or abnormal electrolytes. When asked about her diffuse rash she says that the rash started on the medial portion of her left upper extremity and has spread across her entire body over the past month or so. She describes the rash as diffuse, itchy and painful. She presented to the key account manager today to have this rash evaluated but was unable to have a biopsy of the rash because she was so short of breath. She denies any fevers, chills, hx of cancer, weight loss or any other new symptoms. She admits that she has two cracked teeth on her lower mandible and upper dentures placed 5 years ago. She quit smoking one month ago. She had a recent admission for chest pain last month ( 12/06/2016) for which she said she had seen cardiology and GI and was told her chest pain was from malnutrition. She says that she has never had a PE, DVT or any other blood clot or bleeding disorder in the past. She denies any family hx of clotting disorders. She said she fell trying to ambulated from the toilet on Monday and denies hitting her head or injuring her limbs. She denies any previous injury. Hospital course: Patient was hospitalized. Noted that her d-dimer was elevated. CT scan of the chest with PE protocol was done. It was noted that patient has a right- sided pulmonary embolus. Patient was started on IV heparin. Patient was responding to treatment extremely well. Next day morning it was noted that patient's hemoglobin dropped from 12 to 8. This was noted on a regular blood draw which is her morning labs. Heparin was discontinued. Stool occult blood was negative. Gastroenterology was contacted. CT scan of the abdomen did not show any evidence of bleed. Patient was transfused 3 pack red blood cells. Her hemoglobin rechecked and that was 12. Patient was started on broad- spectrum IV antibiotics. Ultrasound of the lower extremity shows left-sided deep vein thrombosis. There is deep and superficial thrombosis was mainly in the femoral area. This morning it was noted that patient had another drop of hemoglobin from 12 to 10. Patient became tachypneic/tachycardic. Her oxygen demand started worsening. Plan Patient needs possible filter /further intervention for pulmonary embolism. Spoke with the patient's daughter who works as an BATTERY CHARGER TESTER ( Ms Garcia) Ms Garcia requested to transfer patient to tertiary care center for further management. Spoke to [facility] ( JADE Ann) patient will be admitted on Med 1 service at [place] [address] Dr Soto is on consult team. all above discussed with patient's daughter and all questions answered. - Time Spent with Patient Total time spent providing and/or coordinating discharge services: - Constitutional Vitals: Temp Pulse Resp BP Pulse Ox 98.5 F 136 18 138/90 91 01/28/17 16:00 01/28/17 16:00 01/28/17 16:26 01/28/17 16:00 01/28/17 16:26 General appearance: Present: cooperative, A&O X 3, pleasant, no acute distress, obese, answers questions appropriately - Head Head exam: Present: atraumatic, normocephalic - Eye Eye exam: Present: PERRL, conjuntiva pink, sclera anicteric Pupils: Present: PERRL - Neck Neck exam general surgery: Present: supple, trachea midline. Absent: lymphadenopathy - Respiratory Respiratory exam: Present: CTAB. Absent: accessory muscle use, rales, rhonchi, wheezes - Cardiovascular Cardiovascular exam: Present: RRR, +S1, +S2. Absent: diastolic murmur, gallop, rubs, systolic murmur - GI/Abdominal GI/Abdominal exam: Present: normal bowel sounds, soft, no peritoneal signs. Absent: distended, tenderness - Extremities Exam Extremities exam: Present: warm, radial pulses palpable and symetrical. Absent : calf tenderness, cyanotic, pedal edema - Neurological Exam Neurological exam: Present: CN II-XII intact, oriented X3, no focal deficits. Absent: pronater drift, facial droop, speech deficit - Skin Skin exam: Present: dry, intact
[2017-01-28] MEDS: Ondansetron 4 MG/2 ML VIAL IVP PRN (19:44)
[2017-01-30 07:45] LABS: Vitamin D 1,25 Dihydroxy 55.4 pg/mL (19.9-79.3)
[2017-01-31 08:12] LABS: Selenium 64 ug/L (23-190); Zinc 38 ug/dL (60-120)
[2017-01-31 10:31] VITALS: BP 135/86
== END 2017-01-28 19:58 | disposition other institution (70) | DRG 134 ==
LOC: 2NENU 10:55 → EMEROO 10:55 → 2NENU 19:18
PROVIDERS: ADMIT Internal Medicine; ATTEND Internal Medicine